=== PATIENT | female | born 1995 | race Caucasian/White ===

== ENCOUNTER → 2017-01-23 15:56 | Emergency (ER) | payer MEDICAID, OTHER ==
[2017-01-23 16:32] LABS: Hematocrit 41 % (35-47); Hemoglobin 13.6 g/dl (12.0-16.0); Mean Corpuscular HGB Conc 33 g/dl (31-36); Mean Corpuscular Hemoglobin 32 pg (27-31); Mean Corpuscular Volume 96 fL (80-97); Mean Platelet Volume 10 um3 (7.4-10.4); Red Blood Count 4.24 10^6/ul (4.0-5.4); Red Cell Distribution Width 12 % (10.5-15); White Blood Count 6.3 10^3/ul (3.5-10.8)
[2017-01-23 16:48] LABS: ALT 10 U/L (7-52); AST 14 U/L (13-39); Albumin 4.2 g/dL (3.2-5.2); Alkaline Phosphatase 44 U/L (34-104); Anion Gap 2 mmol/L (2-11); Blood Urea Nitrogen 12 mg/dL (6-24); CO2 Carbon Dioxide 28 mmol/L (22-32); Calcium 9.2 mg/dL (8.6-10.3); Chloride 100 mmol/L (101-111); EGFR African American 116.4 (>60); EGFR Non-African American 90.5 (>60); Globulin 3.8 g/dL (2-4); Glucose 95 mg/dL (70-100); Potassium 3.9 mmol/L (3.5-5.0); Sodium 130 mmol/L (133-145)
[2017-01-23 16:49] LABS: Benzodiazepine Urine Screen None Detected (None Detect)
[2017-01-23 16:57] LABS: Urine Bacteria Absent (Absent); Urine Bilirubin Negative (Negative); Urine Glucose Negative (Negative); Urine Nitrite Negative (Negative)
[2017-01-23 17:03] LABS: Acetaminophen < 15 mcg/mL; Alcohol < 10 mg/dL (<10); Salicylate < 2.50 mg/dL (<30)
[2017-01-23 17:13] LABS: TSH (Thyroid Stimulating Horm) 1.55 mcIU/mL (0.34-5.60)
--- NOTE | 2017-01-23 18:47 | ED ---
Sharon Bowie Seung-Jae, scribed for Karlos Mehta MD on 01/23/17 at 1735 . Psychiatric Complaint - HPI Summary HPI Summary: Pt is a 22 y/o F BIBA to the ED with c/o SI due to acute depressive episode which was onset a few hours ago. She states that the episode could have been triggered by stress caused by pt's breakup with her boyfriend. Pt denies cutting herself, unusual pain in body. Pt does not smoke, drink, or abuse drugs. She also has FHx of depression in mother. Pt is currently employed in a [employer] in the [employer]. - History Of Current Complaint Chief Complaint: EDMentalHealth Time Seen by Provider: 01/23/17 16:07 Hx Obtained From: Patient Hx Last Menstrual Period: 02/10/14 Onset/Duration: Sudden Onset Timing: Constant Aggravating Factor(s): Recent Stress - breakup with boyfriend Has Suicidal: Reports: Thoughts - Allergies/Home Medications Allergies/Adverse Reactions: Allergies Allergy/AdvReac Type Severity Reaction Status Date / Time Fluoride Allergy Mild Joint Pain Verified 01/23/17 16:06 Lactose Intolerance (GI) Allergy Mild GI Upset Verified 01/23/17 16:06 Omeprazole Allergy Mild GI Upset Verified 01/23/17 16:06 PMH/Surg Hx/FS Hx/Imm Hx Endocrine/Hematology History: Denies: Hx Anticoagulant Therapy, Hx Diabetes, Hx Thyroid Disease Cardiovascular History: Denies: Hx Hypertension, Hx Pacemaker/ICD Respiratory History: Denies: Hx Asthma, Hx Chronic Obstructive Pulmonary Disease (COPD) GI History: Reports: Hx Gastroesophageal Reflux Disease, Hx Irritable Bowel, Other GI Disorders - constipation, takes Metamucil q daily Denies: Hx Cirrhosis, Hx Crohn's Disease, Hx Diverticulosis, Hx Gall Bladder Disease, Hx Gastrointestinal Bleed, Hx Hiatal Hernia, Hx Jaundice, Hx Obstructive Bowel, Hx Ileostomy, Hx Pyloric Stenosis, Hx Ulcer History: Denies: Hx Renal Disease Musculoskeletal History: Reports: Hx Orthopedic Injury - s/p FX (left) distal ulna/distal radius 2008 Sensory History: Denies: Hx Cataracts, Hx Contacts or Glasses, Hx Eye Injury, Hx Eye Prosthesis, Hx Glaucoma, Hx Macular Degeneration, Hx Vision Problem, Hx Deafness , Hx Hearing Aid, Hx Hearing Problem, Other Sensory Impairments Opthamlomology History: Denies: Hx Cataracts, Hx Contacts or Glasses, Hx Eye Injury, Hx Eye Prosthesis, Hx Glaucoma, Hx Macular Degeneration, Hx Vision Problem, Other Sensory Impairments Neurological History: Denies: Hx Dementia, Hx Seizures Psychiatric History: Reports: Hx Anxiety - also social anxiety Denies: Hx Substance Abuse - Cancer History Cancer Type, Location and Year: appendectomy 04/16/12 - Surgical History Surgery Procedure, Year, and Place: TONSILLECTOMY -10/2007. APPENDECTOMY - 04/15. 07/2008 [facility]- closed reduction FX distal ulna/distal radius Hx Anesthesia Reactions: No - Immunization History Date of Tetanus Vaccine: UP TO DATE Date of Influenza Vaccine: NONE Infectious Disease History: No Infectious Disease History: Denies: Hx Hepatitis, Hx Human Immunodeficiency Virus (HIV), Traveled Outside the [place] in Last 30 Days - Family History Known Family History: Positive: Other - IBS, depression in mother - Social History Alcohol Use: None Substance Use Type: Reports: None Smoking Status (MU): Never Smoked Tobacco Have You Smoked in the Last Year: No Review of Systems Positive: Depressed - acute depressive episode , Other - SI, increased stress All Other Systems Reviewed And Are Negative: Yes Physical Exam - Summary Physical Exam Summary: The patient is well-nourished in no acute distress and in no acute pain. The skin is warm and dry and skin color reflects adequate perfusion. HEENT: The head is normocephalic and atraumatic. The pupils are equal and reactive. The conjunctivae are clear and without drainage. Nares are patent and without drainage. Mouth reveals moist mucous membranes and the throat is without erythema and exudate. Neck is supple with full range of motion and non-tender. There are no carotid bruits. There is no neck vein distension. Respiratory: Chest is non-tender. Lungs are clear to auscultation and breath sounds are symmetrical and equal. Cardiovascular: Hear is regular rate and rhythm. There is no murmur or rub auscultated. There is no peripheral edema and pulses are symmetrical and equal. Abdomen: The abdomen is soft and non-tender. There are normal bowel sounds heard in all four quadrants and there is no organomegaly palpated. Musculoskeletal: There is no back pain noted. Extremities are non-tender with full range of motion. There is good capillary refill. There is no peripheral edema or calf tenderness elicited. Neurological: Patient is alert and oriented to person, place and time. The patient has symmetrical motor strength in all four extremities. Cranial nerves are grossly intact. Deep tendon reflexes are symmetrical and equal in all four extremities. Psychiatric: The patient has an appropriate affect and does not exhibit any anxiety or depression. Triage Information Reviewed: Yes Vital Signs On Initial Exam: Initial Vitals Temp Pulse Resp BP Pulse Ox 98 F 80 14 112/70 99 01/23/17 16:28 01/23/17 16:28 01/23/17 16:28 01/23/17 16:28 01/23/17 16:28 Vital Signs Reviewed: Yes - [place] Coma Scale Coma Scale Total: 15 Diagnostics - Vital Signs Vital Signs Temp Pulse Resp BP Pulse Ox 01/23/17 16:28 98 F 80 14 112/70 99 - Laboratory Lab Results: Lab Results 01/23/17 01/23/17 01/23/17 Range/Units 16:11 16:11 16:22 WBC 6.3 (3.5-10.8) 10^3/ul RBC 4.24 (4.0-5.4) 10^6/ul Hgb 13.6 (12.0-16.0) g/dl Hct 41 (35-47) % MCV 96 (80-97) fL MCH 32 H (27-31) pg MCHC 33 (31-36) g/dl RDW 12 (10.5-15) % Plt Count 224 (150-450) 10^3/ul MPV 10 (7.4-10.4) um3 Neut % (Auto) 67.1 (38-83) % Lymph % (Auto) 22.7 L (25-47) % [place] % (Auto) 9.3 H (1-9) % Eos % (Auto) 0.4 (0-6) % Baso % (Auto) 0.5 (0-2) % Absolute Neuts (auto) 4.3 (1.5-7.7) 10^3/ul Absolute Lymphs (auto) 1.4 (1.0-4.8) 10^3/ul Absolute Monos (auto) 0.6 (0-0.8) 10^3/ul Absolute Eos (auto) 0 (0-0.6) 10^3/ul Absolute Basos (auto) 0 (0-0.2) 10^3/ul Absolute Nucleated RBC 0 10^3/ul Nucleated RBC % 0.1 Sodium (133-145) mmol/L Potassium (3.5-5.0) mmol/L Chloride (101-111) mmol/L Carbon Dioxide (22-32) mmol/L Anion Gap (2-11) mmol/L BUN (6-24) mg/dL Creatinine (0.51-0.95) mg/dL Est GFR ( Amer) (>60) Est GFR (Non-Af Amer) (>60) BUN/Creatinine Ratio (8-20) Glucose (70-100) mg/dL Calcium (8.6-10.3) mg/dL Total Bilirubin (0.2-1.0) mg/dL AST (13-39) U/L ALT (7-52) U/L Alkaline Phosphatase (34-104) U/L Total Protein (6.4-8.9) g/dL Albumin (3.2-5.2) g/dL Globulin (2-4) g/dL Albumin/Globulin Ratio (1-3) TSH (0.34-5.60) mcIU/mL Urine Color Yellow Urine Appearance Cloudy Urine pH 7.0 (5-9) Ur Specific [place] 1.023 (1.010-1.030) Urine Protein Negative (Negative) Urine Ketones Negative (Negative) Urine Blood Negative (Negative) Urine Nitrate Negative (Negative) Urine Bilirubin Negative (Negative) Urine Urobilinogen Negative (Negative) Ur Leukocyte Esterase 1+ H (Negative) Urine WBC (Auto) 1+(6-10/hpf) H (Absent) Urine RBC (Auto) Absent (Absent) Ur Squamous Epith Cells Present H (Absent) Urine Bacteria Absent (Absent) Urine Glucose Negative (Negative) Salicylates (<30) mg/dL Urine Opiates Screen None detected (None Detect) Acetaminophen mcg/mL Ur Barbiturates Screen None detected (None Detect) Ur Phencyclidine Scrn None detected (None Detect) Ur Amphetamines Screen None detected (None Detect) U Benzodiazepines Scrn None detected (None Detect) Urine Cocaine Screen None detected (None Detect) U Cannabinoids Screen None detected (None Detect) Serum Alcohol (<10) mg/dL 01/23/17 Range/Units 16:22 WBC (3.5-10.8) 10^3/ul RBC (4.0-5.4) 10^6/ul Hgb (12.0-16.0) g/dl Hct (35-47) % MCV (80-97) fL MCH (27-31) pg MCHC (31-36) g/dl RDW (10.5-15) % Plt Count (150-450) 10^3/ul MPV (7.4-10.4) um3 Neut % (Auto) (38-83) % Lymph % (Auto) (25-47) % [place] % (Auto) (1-9) % Eos % (Auto) (0-6) % Baso % (Auto) (0-2) % Absolute Neuts (auto) (1.5-7.7) 10^3/ul Absolute Lymphs (auto) (1.0-4.8) 10^3/ul Absolute Monos (auto) (0-0.8) 10^3/ul Absolute Eos (auto) (0-0.6) 10^3/ul Absolute Basos (auto) (0-0.2) 10^3/ul Absolute Nucleated RBC 10^3/ul Nucleated RBC % Sodium 130 L (133-145) mmol/L Potassium 3.9 (3.5-5.0) mmol/L Chloride 100 L (101-111) mmol/L Carbon Dioxide 28 (22-32) mmol/L Anion Gap 2 (2-11) mmol/L BUN 12 (6-24) mg/dL Creatinine 0.80 (0.51-0.95) mg/dL Est GFR ( Amer) 116.4 (>60) Est GFR (Non-Af Amer) 90.5 (>60) BUN/Creatinine Ratio 15.0 (8-20) Glucose 95 (70-100) mg/dL Calcium 9.2 (8.6-10.3) mg/dL Total Bilirubin 0.40 (0.2-1.0) mg/dL AST 14 (13-39) U/L ALT 10 (7-52) U/L Alkaline Phosphatase 44 (34-104) U/L Total Protein 8.0 (6.4-8.9) g/dL Albumin 4.2 (3.2-5.2) g/dL Globulin 3.8 (2-4) g/dL Albumin/Globulin Ratio 1.1 (1-3) TSH 1.55 (0.34-5.60) mcIU/mL Urine Color Urine Appearance Urine pH (5-9) Ur Specific [place] (1.010-1.030) Urine Protein (Negative) Urine Ketones (Negative) Urine Blood (Negative) Urine Nitrate (Negative) Urine Bilirubin (Negative) Urine Urobilinogen (Negative) Ur Leukocyte Esterase (Negative) Urine WBC (Auto) (Absent) Urine RBC (Auto) (Absent) Ur Squamous Epith Cells (Absent) Urine Bacteria (Absent) Urine Glucose (Negative) Salicylates < 2.50 (<30) mg/dL Urine Opiates Screen (None Detect) Acetaminophen < 15 mcg/mL Ur Barbiturates Screen (None Detect) Ur Phencyclidine Scrn (None Detect) Ur Amphetamines Screen (None Detect) U Benzodiazepines Scrn (None Detect) Urine Cocaine Screen (None Detect) U Cannabinoids Screen (None Detect) Serum Alcohol < 10 (<10) mg/dL Result Diagrams: 01/23/17 16:22 01/23/17 16:22 Lab Statement: Any lab studies that have been ordered have been reviewed, and results considered in the medical decision making process. Course/Dx - Course Assessment/Plan: This 22 y/o female presents to ED for acute depression and SI without plan. Pt is medically cleared and evaluated by [facility]. Pt declined voluntary admission to [facility]. - Differential Dx/Clinical Impression Differential Diagnosis/HQI/PQRI: Positive: Depression, Suicidal Ideation Provider Diagnosis: Depression - Physician Notifications Patient Is Medically Stable For: Psych Evaluation - 1638 PM Discharge - Discharge Plan Condition: Stable Disposition: HOME Referrals: No Primary Care Phys,NOPCP [Primary Care Provider] - The documentation as recorded by the Sharon loomis Seung-Jae accurately reflects the service I personally performed and the decisions made by , Karlos Mehta MD.
[2017-01-23 19:10] VITALS: BP 128/74
== END | disposition home or self-care (01) ==
LOC: ED 15:56
DX: F32.9 Major depressive disorder, single episode, unspecified (principal)
CPT/HCPCS: 36415; 80053; 80307; 80320; 80329; 81003; 81015; 84443; 85025; 87086; 99284; G0480

== ENCOUNTER 2017-02-13 21:51 | Emergency (ER) | payer OTHER ==
[2017-02-13 21:59] VITALS: BP 129/93
[2017-02-13 23:28] LABS: Hematocrit 40 % (35-47); Hemoglobin 13.5 g/dl (12.0-16.0); Mean Corpuscular HGB Conc 34 g/dl (31-36); Mean Corpuscular Hemoglobin 32 pg (27-31); Mean Corpuscular Volume 95 fL (80-97); Mean Platelet Volume 10 um3 (7.4-10.4); Red Blood Count 4.24 10^6/ul (4.0-5.4); Red Cell Distribution Width 12 % (10.5-15); White Blood Count 9.3 10^3/ul (3.5-10.8)
[2017-02-13 23:31] LABS: ALT 9 U/L (7-52); AST 12 U/L (13-39); Albumin 4.2 g/dL (3.2-5.2); Alkaline Phosphatase 45 U/L (34-104); Anion Gap 7 mmol/L (2-11); BUN/Creatinine Ratio 18.3 (8-20); Blood Urea Nitrogen 15 mg/dL (6-24); CO2 Carbon Dioxide 26 mmol/L (22-32); Calcium 9.5 mg/dL (8.6-10.3); Chloride 101 mmol/L (101-111); EGFR African American 113.2 (>60); Globulin 3.7 g/dL (2-4); Glucose 90 mg/dL (70-100); Potassium 3.8 mmol/L (3.5-5.0); Sodium 134 mmol/L (133-145); Total Protein 7.9 g/dL (6.4-8.9)
[2017-02-14 00:21] LABS: Acetaminophen < 15 mcg/mL; Alcohol < 10 mg/dL (<10); Salicylate < 2.50 mg/dL (<30)
[2017-02-14 00:31] LABS: TSH (Thyroid Stimulating Horm) 5.66 mcIU/mL (0.34-5.60)
[2017-02-14 01:58] LABS: Urine Bacteria Absent (Absent); Urine Bilirubin Negative (Negative); Urine Glucose Negative (Negative); Urine Nitrite Negative (Negative)
[2017-02-14 01:59] LABS: Benzodiazepine Urine Screen None Detected (None Detect)
--- NOTE | 2017-02-14 02:51 | ED ---
I, Oh,Soohguzman, scribed for Karlos Mehta MD on 02/13/17 at 2253 . Psychiatric Complaint - HPI Summary HPI Summary: This 22 y/o female presents to ED for acute on chronic depression since 4 hours ago. Negative SI, EtOH or drug use today, or visual hallucination. Positive sleep disturbance. Good appetite. PMHx includes known depression, endometriosis , anxiety, and fibromyalgia. Positive Hx of inpatient psych treatment at [facility]. FHx is positive for anxiety. - History Of Current Complaint Chief Complaint: EDMentalHealth Time Seen by Provider: 02/13/17 22:35 Hx Obtained From: Patient, Medical Records Hx Last Menstrual Period: 02/10/14 Onset/Duration: Sudden Onset Timing: Constant Character: Depressed Aggravating Factor(s): Nothing Alleviating Factor(s): Nothing Associated Signs And Symptoms: Positive: Sleep Disturbance Related History: Positive For: Prior Psychiatric Issues Has Suicidal: Denies: Thoughts Has Homicidal: Denies: Thoughts - Allergies/Home Medications Allergies/Adverse Reactions: Allergies Allergy/AdvReac Type Severity Reaction Status Date / Time Fluoride Allergy Mild Joint Pain Verified 01/23/17 16:06 Lactose Intolerance (GI) Allergy Mild GI Upset Verified 01/23/17 16:06 Omeprazole Allergy Mild GI Upset Verified 01/23/17 16:06 PMH/Surg Hx/FS Hx/Imm Hx Endocrine/Hematology History: Denies: Hx Anticoagulant Therapy, Hx Diabetes, Hx Thyroid Disease Cardiovascular History: Denies: Hx Hypertension, Hx Pacemaker/ICD Respiratory History: Denies: Hx Asthma, Hx Chronic Obstructive Pulmonary Disease (COPD) GI History: Reports: Hx Gastroesophageal Reflux Disease, Hx Irritable Bowel, Other GI Disorders - constipation, takes Metamucil q daily Denies: Hx Cirrhosis, Hx Crohn's Disease, Hx Diverticulosis, Hx Gall Bladder Disease, Hx Gastrointestinal Bleed, Hx Hiatal Hernia, Hx Jaundice, Hx Obstructive Bowel, Hx Ileostomy, Hx Pyloric Stenosis, Hx Ulcer History: Denies: Hx Renal Disease Musculoskeletal History: Reports: Hx Orthopedic Injury - s/p FX (left) distal ulna/distal radius 2008 Sensory History: Denies: Hx Cataracts, Hx Contacts or Glasses, Hx Eye Injury, Hx Eye Prosthesis, Hx Glaucoma, Hx Macular Degeneration, Hx Vision Problem, Hx Deafness , Hx Hearing Aid, Hx Hearing Problem, Other Sensory Impairments Opthamlomology History: Denies: Hx Cataracts, Hx Contacts or Glasses, Hx Eye Injury, Hx Eye Prosthesis, Hx Glaucoma, Hx Macular Degeneration, Hx Vision Problem, Other Sensory Impairments Neurological History: Denies: Hx Dementia, Hx Seizures Psychiatric History: Reports: Hx Anxiety - also social anxiety, Hx Depression Denies: Hx Eating Disorder, Hx of Violent Episodes Against Others, Hx Substance Abuse - Cancer History Cancer Type, Location and Year: appendectomy 04/16/12 - Surgical History Surgery Procedure, Year, and Place: TONSILLECTOMY -10/2007. APPENDECTOMY - 04/15. 07/2008 [facility]- closed reduction FX distal ulna/distal radius Hx Anesthesia Reactions: No - Immunization History Date of Tetanus Vaccine: UP TO DATE Date of Influenza Vaccine: NONE Infectious Disease History: No Infectious Disease History: Denies: Hx Hepatitis, Hx Human Immunodeficiency Virus (HIV), Traveled Outside the [place] in Last 30 Days - Family History Known Family History: Positive: Other - IBS, depression in mother - Social History Alcohol Use: None Hx Substance Use: No Substance Use Type: Reports: None Hx Tobacco Use: No Smoking Status (MU): Never Smoked Tobacco Have You Smoked in the Last Year: No Review of Systems Negative: Fever Positive: Depressed, Other - sleep disturbance. All Other Systems Reviewed And Are Negative: Yes Physical Exam - Summary Physical Exam Summary: The patient is well-nourished in no acute distress and in no acute pain. The skin is warm and dry and skin color reflects adequate perfusion. No laceration noted at bilat upper arms. HEENT: The head is normocephalic and atraumatic. The pupils are equal and reactive. The conjunctivae are clear and without drainage. Nares are patent and without drainage. Mouth reveals moist mucous membranes and the throat is without erythema and exudate. The external ears are intact. The ear canals are patent and without drainage. The tympanic membranes are intact. Neck is supple with full range of motion and non-tender. There are no carotid bruits. There is no neck vein distension. Respiratory: Chest is non-tender. Lungs are clear to auscultation and breath sounds are symmetrical and equal. Cardiovascular: Hear is regular rate and rhythm. There is no murmur or rub auscultated. There is no peripheral edema and pulses are symmetrical and equal. Abdomen: The abdomen is soft and non-tender. There are normal bowel sounds heard in all four quadrants and there is no organomegaly palpated. Musculoskeletal: There is no back pain noted. Extremities are non-tender with full range of motion. There is good capillary refill. There is no peripheral edema or calf tenderness elicited. Neurological: Patient is alert and oriented to person, place and time. The patient has symmetrical motor strength in all four extremities. Cranial nerves are grossly intact. Deep tendon reflexes are symmetrical and equal in all four extremities. Psychiatric: The patient is noted depressed. Triage Information Reviewed: Yes Vital Signs On Initial Exam: Initial Vitals Temp Pulse Resp BP Pulse Ox 98.7 F 94 18 129/93 98 02/13/17 21:54 02/13/17 21:54 02/13/17 21:54 02/13/17 21:54 02/13/17 21:54 Vital Signs Reviewed: Yes - [place] Coma Scale Coma Scale Total: 15 Diagnostics - Vital Signs Vital Signs Temp Pulse Resp BP Pulse Ox 02/13/17 22:24 98.7 F 94 18 129/93 100 02/13/17 21:54 98.7 F 94 18 129/93 98 - Laboratory Lab Results: Lab Results 02/13/17 02/13/17 02/14/17 Range/Units 23:04 23:04 01:28 WBC 9.3 (3.5-10.8) 10^3/ul RBC 4.24 (4.0-5.4) 10^6/ul Hgb 13.5 (12.0-16.0) g/dl Hct 40 (35-47) % MCV 95 (80-97) fL MCH 32 H (27-31) pg MCHC 34 (31-36) g/dl RDW 12 (10.5-15) % Plt Count 181 (150-450) 10^3/ul MPV 10 (7.4-10.4) um3 Neut % (Auto) 65.3 (38-83) % Lymph % (Auto) 26.1 (25-47) % [place] % (Auto) 7.8 (1-9) % Eos % (Auto) 0.5 (0-6) % Baso % (Auto) 0.3 (0-2) % Absolute Neuts (auto) 6.0 (1.5-7.7) 10^3/ul Absolute Lymphs (auto) 2.4 (1.0-4.8) 10^3/ul Absolute Monos (auto) 0.7 (0-0.8) 10^3/ul Absolute Eos (auto) 0 (0-0.6) 10^3/ul Absolute Basos (auto) 0 (0-0.2) 10^3/ul Absolute Nucleated RBC 0.01 10^3/ul Nucleated RBC % 0.1 Sodium 134 (133-145) mmol/L Potassium 3.8 (3.5-5.0) mmol/L Chloride 101 (101-111) mmol/L Carbon Dioxide 26 (22-32) mmol/L Anion Gap 7 (2-11) mmol/L BUN 15 (6-24) mg/dL Creatinine 0.82 (0.51-0.95) mg/dL Est GFR ( Amer) 113.2 (>60) Est GFR (Non-Af Amer) 88.0 (>60) BUN/Creatinine Ratio 18.3 (8-20) Glucose 90 (70-100) mg/dL Calcium 9.5 (8.6-10.3) mg/dL Total Bilirubin 0.40 (0.2-1.0) mg/dL AST 12 L (13-39) U/L ALT 9 (7-52) U/L Alkaline Phosphatase 45 (34-104) U/L Total Protein 7.9 (6.4-8.9) g/dL Albumin 4.2 (3.2-5.2) g/dL Globulin 3.7 (2-4) g/dL Albumin/Globulin Ratio 1.1 (1-3) TSH 5.66 H (0.34-5.60) mcIU/mL Beta HCG, Quant Pending Urine Color Yellow Urine Appearance Clear Urine pH 6.0 (5-9) Ur Specific [place] 1.024 (1.010-1.030) Urine Protein Negative (Negative) Urine Ketones Trace H (Negative) Urine Blood Negative (Negative) Urine Nitrate Negative (Negative) Urine Bilirubin Negative (Negative) Urine Urobilinogen Negative (Negative) Ur Leukocyte Esterase Trace H (Negative) Urine WBC (Auto) Trace(0-5/hpf) (Absent) Urine RBC (Auto) Trace(0-2/hpf) (Absent) Ur Squamous Epith Cells Present H (Absent) Urine Bacteria Absent (Absent) Urine Glucose Negative (Negative) Salicylates < 2.50 (<30) mg/dL Urine Opiates Screen (None Detect) Acetaminophen < 15 mcg/mL Ur Barbiturates Screen (None Detect) Ur Phencyclidine Scrn (None Detect) Ur Amphetamines Screen (None Detect) U Benzodiazepines Scrn (None Detect) Urine Cocaine Screen (None Detect) U Cannabinoids Screen (None Detect) Serum Alcohol < 10 (<10) mg/dL 02/14/17 Range/Units 01:28 WBC (3.5-10.8) 10^3/ul RBC (4.0-5.4) 10^6/ul Hgb (12.0-16.0) g/dl Hct (35-47) % MCV (80-97) fL MCH (27-31) pg MCHC (31-36) g/dl RDW (10.5-15) % Plt Count (150-450) 10^3/ul MPV (7.4-10.4) um3 Neut % (Auto) (38-83) % Lymph % (Auto) (25-47) % [place] % (Auto) (1-9) % Eos % (Auto) (0-6) % Baso % (Auto) (0-2) % Absolute Neuts (auto) (1.5-7.7) 10^3/ul Absolute Lymphs (auto) (1.0-4.8) 10^3/ul Absolute Monos (auto) (0-0.8) 10^3/ul Absolute Eos (auto) (0-0.6) 10^3/ul Absolute Basos (auto) (0-0.2) 10^3/ul Absolute Nucleated RBC 10^3/ul Nucleated RBC % Sodium (133-145) mmol/L Potassium (3.5-5.0) mmol/L Chloride (101-111) mmol/L Carbon Dioxide (22-32) mmol/L Anion Gap (2-11) mmol/L BUN (6-24) mg/dL Creatinine (0.51-0.95) mg/dL Est GFR ( Amer) (>60) Est GFR (Non-Af Amer) (>60) BUN/Creatinine Ratio (8-20) Glucose (70-100) mg/dL Calcium (8.6-10.3) mg/dL Total Bilirubin (0.2-1.0) mg/dL AST (13-39) U/L ALT (7-52) U/L Alkaline Phosphatase (34-104) U/L Total Protein (6.4-8.9) g/dL Albumin (3.2-5.2) g/dL Globulin (2-4) g/dL Albumin/Globulin Ratio (1-3) TSH (0.34-5.60) mcIU/mL Beta HCG, Quant Urine Color Urine Appearance Urine pH (5-9) Ur Specific [place] (1.010-1.030) Urine Protein (Negative) Urine Ketones (Negative) Urine Blood (Negative) Urine Nitrate (Negative) Urine Bilirubin (Negative) Urine Urobilinogen (Negative) Ur Leukocyte Esterase (Negative) Urine WBC (Auto) (Absent) Urine RBC (Auto) (Absent) Ur Squamous Epith Cells (Absent) Urine Bacteria (Absent) Urine Glucose (Negative) Salicylates (<30) mg/dL Urine Opiates Screen None detected (None Detect) Acetaminophen mcg/mL Ur Barbiturates Screen None detected (None Detect) Ur Phencyclidine Scrn None detected (None Detect) Ur Amphetamines Screen None detected (None Detect) U Benzodiazepines Scrn None detected (None Detect) Urine Cocaine Screen None detected (None Detect) U Cannabinoids Screen None detected (None Detect) Serum Alcohol (<10) mg/dL Result Diagrams: 02/13/17 23:04 02/13/17 23:04 Lab Statement: Any lab studies that have been ordered have been reviewed, and results considered in the medical decision making process. Course/Dx - Course Assessment/Plan: This 22 y/o female presents to ED for acute on chronic known depression. Pt denies any SI or HI. Positive sleep disturbance, but pt denies any appetite change, auditory hallucination, or paranoia. Pt was medically cleared at 2340 PM and has been cleared for discharge after [facility]. Pt is stable throughout ED course, and stable for discharge at this moment. - Differential Dx/Clinical Impression Differential Diagnosis/HQI/PQRI: Positive: Anxiety, Depression Provider Diagnosis: Depression - Physician Notifications Patient Is Medically Stable For: Psych Evaluation - Medically cleared at 2340 PM Discharge - Discharge Plan Condition: Stable Disposition: HOME Referrals: Adela Sanchez MD [Primary Care Provider] - The documentation as recorded by the scribRoman pickering Soohyun accurately reflects the service I personally performed and the decisions made by me, Karlos Mehta MD.
== END 2017-02-14 02:25 | disposition home or self-care (01) ==
LOC: ED 21:51
DX: F32.9 Major depressive disorder, single episode, unspecified (principal); F41.9 Anxiety disorder, unspecified; Z04.8 Encounter for examination and observation for other specified reasons
CPT/HCPCS: 36415; 80053; 80307; 80320; 80329; 81003; 81015; 84443; 84702; 85025; 87086; 99284; G0480

== ENCOUNTER 2017-03-05 15:13 | Emergency (ER) | payer OTHER ==
[2017-03-05] MEDS ORDERED: diPHENhydraMINE IV* 50 MG/ML 1 ml VIAL (BENADRYL) IV ONE (16:00)
[2017-03-05] MEDS ORDERED: Ketorolac INJ* 30 MG/ML 1 ML VIAL IV ONE (16:00)
[2017-03-05] MEDS ORDERED: NS 0.9% 1000 ML* 1,000 ML IV ONE (17:16)
[2017-03-05 17:47] VITALS: BP 118/78
--- NOTE | 2017-03-11 14:00 | UC ---
Ambar Bowie SooYoung, scribed for BrieCarmen Franco DO on 03/05/17 at 1554 . Headache HPI - HPI Summary HPI Summary: A 22 y/o F presents to [facility] with diffuse ALBA onset yesterday around 1100. Pt states she doesn't usually get ALBA. It resolved briefly, but she woke up with it this AM. Rated LABA as 4/10 at bedside, described as throbbing in the ears. Associated sx: photophobia, sinus congestion on R-side and cold-like sx ongoing for past 2 weeks; cough and sore throat since resolved. Denies fever, chills, CP , SOB, n/v/d, abd pain, dysuria. Aggravating factors: bright lights, loud noises. 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 - History Of Current Complaint Chief Complaint: UCHeadache Stated Complaint: HEADACHE Time Seen by Provider: 03/05/17 15:43 Hx Obtained From: Patient Hx Last Menstrual Period: 03/04/17 Onset/Duration: Gradual Onset, Lasting Days, Still Present Onset Of Symptoms: Gradual, Still Present Initially Headache Was: Moderate Currently Pain Is: Current Pain Scale(0-10)= - 4, Moderate Pain Intensity: 6 - generally Pain Scale Used: 0-10 Numeric Timing: Constant Character: Throbbing Location of Headache: Diffuse Aggravating Factor: Bright Lights, Other - loud [place] Associated Signs And Symptoms: Positive: Sinus Pressure - congestion, Other ( Noted In Comments) - pos: photophobia, cough, sore throat; neg: chills, CP, SOB , diarrhea, abd pain, dysuria. Negative: Nausea, Vomiting, Fever - Allergies/Home Medications Allergies/Adverse Reactions: Allergies Allergy/AdvReac Type Severity Reaction Status Date / Time Fluoride Allergy Mild Joint Pain Verified 03/05/17 15:26 Lactose Intolerance (GI) Allergy Mild GI Upset Verified 03/05/17 15:26 Omeprazole Allergy Mild GI Upset Verified 03/05/17 15:26 Home Medications: Home Medications Levonorgestrel & Eth Estradiol [Aubra] 1 tab PO 03/05/17 [History] PMH/Surg Hx/FS Hx/Imm Hx Previously Healthy: No GI/ History: Gastroesophageal Reflux, Other Other GI/ History: IBS Psychological History: Anxiety, Depression Other History Of: Negative For: Anticoagulant Therapy - Surgical History Surgical History: Yes Surgery Procedure, Year, and Place: TONSILLECTOMY -10/2007. APPENDECTOMY - 04/15. 07/2008 [facility]- closed reduction FX distal ulna/distal radius - Family History Known Family History: Positive: Hypertension, Diabetes - maternal, Other - IBS, depression in mother - Social History Occupation: Unemployed, Student Lives: With Family - friends Alcohol Use: None Substance Use Type: None Smoking Status (MU): Never Smoked Tobacco Have You Smoked in the Last Year: No - Immunization History Vaccination Up to Date: Yes Review of Systems Constitutional: Negative Skin: Negative Eyes: Photophobia ENT: Sore Throat - resolved, Sinus Congestion Respiratory: Cough - resolved Cardiovascular: Negative Gastrointestinal: Negative Genitourinary: Negative Motor: Negative Neurovascular: Negative Musculoskeletal: Negative Neurological: Headache Psychological: Negative All Other Systems Reviewed And Are Negative: Yes Physical Exam Triage Information Reviewed: Yes Appearance: Well-Appearing, No Pain Distress, Well-Nourished Vital Signs: Initial Vital Signs Temp 98.8 F 03/05/17 15:23 Pulse 91 03/05/17 15:23 Resp 18 03/05/17 15:23 BP 117/72 03/05/17 15:23 Pulse Ox 100 03/05/17 15:23 Vital Signs Reviewed: Yes Eyes: Positive: Conjunctiva Clear. Negative: Discharge ENT: Positive: Hearing grossly normal, Other: - impacted cerumen bilaterally. Negative: Muffled/hoarse voice Neck: Positive: Supple, Nontender Respiratory: Positive: Lungs clear, Normal breath sounds, No respiratory distress, No accessory muscle use Cardiovascular: Positive: RRR, No Murmur Musculoskeletal Exam: Normal Neurological: Positive: Alert, Muscle Tone Normal, Other: - Aox3, cn2-12 intact , stregnth sensationand reflexes intact bl, no cerebellar sign Psychological Exam: Normal Psychological: Positive: Age Appropriate Behavior Skin Exam: Normal, Other - warm, dry, nml color Re-Evaluation - Re-Evaluation 1 Re-Evaluation Time: 17:10 Change: Improved Comment: Pt is feeling sleepy, but improved. No ALBA, no light sensitivity. Headache Course/Dx - Course Course Of Treatment: Medications reviewed this visit. Normal BP reading and no follow-up instructions required. Pt given Benadryl, Toradol, fluids at [facility]. re -eval s/p migraine cocktail:all alba sx resolved. pt sleepy and wants to go home and sleep - Differential Dx/Diagnosis Differential Diagnosis/HQI/PQRI: Migraine, Sinus Headache, Tension Headache, Viral Syndrome Provider Diagnoses: headache Discharge - Discharge Plan Condition: Stable Disposition: HOME Patient Education Materials: Acute Headache (ED) Forms: *Work Release Referrals: Adela Sanchez MD [Primary Care Provider] - (Follow up within 1 week) Additional Instructions: Return to Urgent Care if you have any new or worsening symptoms. The documentation as recorded by the Ambar loomis SooYoung accurately reflects the service I personally performed and the decisions made by , Carmen Baird DO.
== END 2017-03-05 17:48 | disposition home or self-care (01) ==
LOC: UCEAST 15:13
DX: R51 Headache (principal); K21.9 Gastro-esophageal reflux disease without esophagitis; K58.9 Irritable bowel syndrome, unspecified; F41.9 Anxiety disorder, unspecified; F32.9 Major depressive disorder, single episode, unspecified
CPT/HCPCS: 96361; 96374; 96375; 99211; G0463; J1200; J1885

== ENCOUNTER 2018-09-22 15:22 | Emergency (ER) | payer OTHER ==
[2018-09-22 16:14] VITALS: BP 117/75
--- NOTE | 2018-09-22 17:03 | UC ---
Skin Complaint HPI - HPI Summary HPI Summary: 23 y/o female presents to the urgent care c/o RT thumb nail pain and drainage s/ p scratching her thumb w/ something on last 09/20/2018. Pt reports she noticed the open area is oozing a yellowish discharge, red and painful since yesterday. She has applied Neosporyn topical cream, but it is concerned it is getting infected since this morning she noticed more drainage. Pain at touch is 4/10. She can move thumb w/o any problem. Pt denies numbness or tingling sensation over the thumb, fever, SOB, chest pain, SOB, chest pain, abdominal pain, N/V/D. - History of Current Complaint Chief Complaint: UCSkin Time Seen by Provider: 09/22/18 16:48 Stated Complaint: INFECTED THUMBNAIL Hx Obtained From: Patient Hx Last Menstrual Period: currently ?: No Onset/Duration: Gradual Onset, Lasting Days - 2 days, Still Present, Worse Since - today Skin Exposure Onset/Duration: Days Ago - 2 days Timing: Constant Onset Severity: Mild Current Severity: Moderate Pain Intensity: 3 Pain Scale Used: 0-10 Numeric Location: Discrete - Rt thumb w/ infected abrasion Character: Redness, Raised, Painful Aggravating Factor(s): OTC Meds, Touch Alleviating Factor(s): OTC Creams/Salves Associated Signs & Symptoms: Positive: Rash - infected abrasion on Rt thumb, Drainage - yellowish, Tenderness. Negative: Fever, Chills Related History: Other: - infected abrasion on the Rt thumb - Allergy/Home Medications Allergies/Adverse Reactions: Allergies Allergy/AdvReac Type Severity Reaction Status Date / Time omeprazole AdvReac Mild GI Upset Verified 09/22/18 16:15 lactose AdvReac GI Upset Verified 09/22/18 16:15 fluoride AdvReac Mild Joint Pain Uncoded 09/22/18 16:15 Home Medications: Home Medications Bismuth Subsalicylate [Pepto-Bismol] 525 mg PO DAILY PRN 09/22/18 [History Confirmed 09/22/18] Etonogestrel [Nexplanon] 68 mg IMPLANT 09/22/18 [History] Melatonin 3 mg PO BEDTIME PRN 09/22/18 [History Confirmed 09/22/18] PMH/Surg Hx/FS Hx/Imm Hx Previously Healthy: Yes - Pt denies PMHX Other History Of: Negative For: Anticoagulant Therapy - Surgical History Surgical History: Yes Surgery Procedure, Year, and Place: TONSILLECTOMY -10/2007. APPENDECTOMY - 04/15. 07/2008 [facility]- closed reduction FX distal ulna/distal radius - Family History Known Family History: Positive: Hypertension, Diabetes - maternal, Other - IBS, depression in mother - Social History Occupation: Employed Full-time Lives: With Family Alcohol Use: None Substance Use Type: None Smoking Status (MU): Never Smoked Tobacco Have You Smoked in the Last Year: No - Immunization History Vaccination Up to Date: Yes Review of Systems All Other Systems Reviewed And Are Negative: Yes Constitutional: Positive: Negative Skin: Positive: Rash - infected brasion on the Rt thumb oozing a yellowish drainage Eyes: Positive: Negative ENT: Positive: Negative Respiratory: Positive: Negative Cardiovascular: Positive: Negative Gastrointestinal: Positive: Negative Genitourinary: Positive: Negative Motor: Positive: Negative Neurovascular: Positive: Negative Musculoskeletal: Positive: Negative Neurological: Positive: Negative Psychological: Positive: Negative Is Patient Immunocompromised?: No Physical Exam - Summary Physical Exam Summary: Vital Signs Reviewed: Yes General: well developed, well nourished obese female sitting in the examining table w/o any apparent distress Eye Exam: Normal Eyes: Positive: Conjunctiva Clear - PERRLA, EOMI, fundi grossly normal ENT: Positive: Normal ENT inspection, Hearing grossly normal, Pharynx normal, TMs normal Neck: Positive: Supple, Nontender, No Lymphadenopathy Respiratory: Positive: Chest non-tender, Lungs clear, Normal breath sounds, No respiratory distress Cardiovascular: Positive: RRR, No Murmur, Pulses Normal, Brisk Capillary Refill Abdomen Description: Positive: Nontender, No Organomegaly, Soft. Negative: CVA Tenderness (R), CVA Tenderness (L) Bowel Sounds: Positive: Present Musculoskeletal: Positive: Strength Intact, ROM Intact, No Edema Neurological: Positive: Alert, Muscle Tone Normal Psychological Exam: Normal Skin: Positive: RT first phalanx with medial aspect of the nail w/ discrete w/ a discrete erythematous pustule draining yellowish discharge. mild tender to palpation. FROM of phalanx, sensation is intact, capillary refill WNL, reflexes WNL Triage Information Reviewed: Yes Vital Signs: Initial Vital Signs Temp 98.6 F 03/16/19 16:09 Pulse 95 09/22/18 16:09 Resp 16 09/22/18 16:09 BP 117/75 09/22/18 16:09 Pulse Ox 100 09/22/18 16:09 Course/Dx - Course Course Of Treatment: 23 y/o female presents to the urgent care c/o RT thumb nail pain and drainage s/ p scratching her thumb w/ something on last 09/20/2018. Pt reports she noticed the open area is oozing a yellowish discharge, red and painful since yesterday. She has applied Neosporyn topical cream, but it is concerned it is getting infected since this morning she noticed more drainage. Pain at touch is 4/10. She can move thumb w/o any problem. Pt denies numbness or tingling sensation over the thumb, fever, SOB, chest pain, SOB, chest pain, abdominal pain, N/V/D. Hx obtained. Pt w/ Rt thumb mild paronychia on examination. At this moment there is not need for drainage. No Hx of MRSA. Pt Rx Keflex PO and Bacitracin oint.. Advised to take Motrin for pain and swelling. D/C instructions explained. Pt advised if not improvement of symptoms to return to the urgent care or PCP for further management. Father and PT understood and agreed w/ plan of care - Differential Diagnoses - Skin Complaint Differential Diagnoses: Abscess, Cellulitis, MRSA, Tinea, Other - paronychia - Diagnoses Provider Diagnosis: Paronychia of right thumb Discharge - Sign-Out/Discharge Documenting (check all that apply): Patient Departure - d/c home All imaging exams completed and their final reports reviewed: No Studies - Discharge Plan Condition: Stable Disposition: HOME Prescriptions: Bacitracin OINTMENT* 1 applic TOPICAL BID #1 tube Cephalexin CAP* [Keflex CAP*] 500 mg PO TID #21 cap Patient Education Materials: Paronychia (ED) Referrals: Vitor Hammond MD [Primary Care Provider] - 3 Days Additional Instructions: 1-Please take Keflex full course of Antibiotic to avoid resistance. 2- Please apply Bacitracin oint as directed. If redness and swelling doubles in size after 48 hrs of taking antibiotic and fever develops please return to the urgent care or f/u w/ your PCP for further management 3-Avoid ftoo much flexion of your thumb and keep wound clean and dry. - Billing Disposition and Condition Condition: STABLE Disposition: Home
== END 2018-09-22 17:11 | disposition home or self-care (01) ==
LOC: UCEAST 15:22
DX: L03.011 Cellulitis of right finger (principal); Z88.8 Allergy status to other drugs, medicaments and biological substances; Z91.011 Allergy to milk products
CPT/HCPCS: 99212; G0463

== ENCOUNTER 2018-12-26 12:32 | Emergency (ER) | payer OTHER ==
--- OUTSIDE RECORDS SUMMARY | 2018-12-26 12:55 | XMS REPORT | Continuity of Care Document ---
:1995 Author Organization [facility] Address [address] [place], [place] [id number] Phone Care Team Providers Name Role Phone Gwendolyn Garrison Unavailable Unavailable Allergies, Adverse Reactions, Alerts Substance Reaction Status FLUORIDE (mild) Active Medications Medication Instructions Dosage Effective Dates Status Comments (start - stop) Nexplanon 68 mg Insert in clinic - Active subdermal implant MELATONIN (unknown Not Available - Active strength) B12 5,000 mcg-100 - Active mcg sublingual lozenge Celexa 20 mg tablet - Active Problems Condition Effective Dates (start - Clinical Status Comments stop) Encounter for oth general cnsl and - advice on contraception Pelvic and perineal pain Enctr srvlnc implantable subdermal contraceptive Enctr for init prescription of implntbl subdermal contracep Encounter for oth general cnsl and advice on contraception Human immunodeficiency virus [HIV] - counseling 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 [facility] [address] , [facility], [facility] [address], [address] tel:[phone] [facility], [address] [place], [id number], [place] tel:[phone] [facility] Encounter for [facility]ankar [facility] [place] ot general cnsl [address]. [address] Provider: Javy and advice on [address], Kathleen Finger contraceptionPel [place], [place], Shankar J, [facility], [address] [place] [address], [place]. [address] painEnctr srvlnc tel:[phone], [address], [place], implantable [address] [place], [place], [place], [address]. [id number], contraceptive tel:[phone] tel:[phone] [facility] Enctr for init Hardik Johnston. [facility] [place] prescription of [address] Provider: Javy implntbl [address], [place], [place], [address], [place], [address] [facility], [address] contracep [place]. [address], [place], [place], [place], [address]. [id number], [place] tel:[phone] [facility] Encounter for 0 Raphaelidis [facility] [place] ot general cnsl [address] Sarah. [address] Provider: Javy and advice on [address], Sarah Finger contraception [place], [place], Raphaelidi [facility], [address] [id number]. s, [address] tel:[phone], [address], [place], [address] [place], [place], [address]. [id number], tel:[phone] tel:[phone] [facility] Human Hardik Johnston. 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 [place], [address] (general) [address], [address], [place], (routine) w/o [place], [place], [place], [address]. [id number], findingsEncounte tel:[phone] [place] r for oth [id number] tel:[phone] screening for [id number] malignant neoplasm of breastEncounter for surveillance of contraceptive pills Family History Family Member Diagnosis Age At Onset 1st degree relative No hx of cancer of breast, colon, endometrium or ovary 1st degree relative No hx of osteoporosis 1st degree relative No hx of coronary heart disease (female <65, male <55) 1st degree relative No hx of venous thromboembolism Immunizations Vaccine Date Status Comments No information Payers Payer name Insurance type Covered libertarian ID Authorization(s) Jaswinder MARCUS [facility] CI [id number] Social History Type Description Quantity Date Captured Comments Alcohol Use Details Unknown Caffeine Use Details Unknown Tobacco Use Status Unknown Smoking Status Never smoker Sex Female Vital Signs Date / Height Weight BMI Pulse Blood Temperature Respiratory Body Head BMI Pulse Inhaled Time: Rate Pressure Rate Surface Circumference percentile Ox Ox Area No information Chief Complaint And Reason For Visit No information Reason For Referral Reason For Referral No information Plan Of Treatment Date Type Action Status No information History Of Present Illness Encounter Date Complaint History Of Present Illness No information Functional Status Date Functional Assessment No information Medications Administered Medication Instructions Dosage Effective Dates (start - stop) Status Comments No information Instructions Date Instruction Additional Information No information Assessments Type Assessment Date No information Goals Health Concern Goal Type Priority Status Date No information Medical Equipment Description Device Glynn Device Identifier Effective Dates (start - stop ) Status No information Mental Status Date Cognitive Assessment No information Health Concerns Observation Date No information Concern Status Date No information
--- OUTSIDE RECORDS SUMMARY | 2018-12-26 12:55 | XMS REPORT | Continuity of Care Document ---
:1995 External Reference #:[id number] Author Name Kathleen Francisco Care Team Providers Name Role Phone Vitor Hammond MD Primary Care Physician Unavailable Payers Date Identification Numbers Payment Provider Subscriber Policy Number: [id number] Jaswinder Zarate PayID: [id number] [address] [place] [address] Problems Active Problems Provider Date Hypermobility syndrome Tevin Navas M.D. Onset: 05/22/2014 Myalgia & Myositis Unspecified Tevin Navas M.D. Onset: 05/22/2014 Dyssomnia Sneha Jennings MD Onset: 08/06/2014 Insomnia Sneha Jennings MD Onset: 08/06/2014 Anxiety disorder Leigh Whitehead M.D. Onset: 10/16/2014 Irritable bowel syndrome Onset: Gastroesophageal reflux disease Heaven Kwan DNP, RN, SCREEDMAN/LABORER- Onset: 05/12 Note: Nocturnal Dysmenorrhea Onset: Note: will see post form remover possible laproscopy Inactive Problems Gastritis Onset: Inactive: 03/12/2015 Family History Date Family Member(s) Observation Comments Onset: (2014) Father No Current Problems Hypermobility syndrome (age 41 Years) Onset: (2014) Mother Depression (age 40 Years) Mother narcolepsy Siblings 1 Siblings adoptive brother; alive biological brother who was and well adopted. Social History Type Date Description Comments Sex Unknown Marital Status Single Lives With Mother And Father Occupation Unemployed was attending [employer] but stopped going 2013 due to almost passing out while standing on a bus. has interests in art and ceramics. ETOH Use Never used alcohol Tobacco Use Start: Unknown Patient has never smoked Recreational Drug Use Denies Drug Use Smoking Status Reviewed: 11/29/18 Patient has never smoked Exercise Type/Frequency Exercises regularly Allergies, Adverse Reactions, Alerts Active Allergies Reaction Severity Comments Date Flouride Joint pain 05/22/2014 Lactose (Intolerance) 05/22/2014 Medications Active Medications SIG Qnty Indications Ordering Date Provider Neoprene Patella Knee use daily as needed 2units Isaak Cuenca, 2017 Support/Medium for knee M.D. Misc stabilization Knee Brace bilateral knee brace 1units Isaak Cuenca, 08/22/2017 Misc daily for M.D. stabilization dx m35.7 Cyanocobalamin inject 1 milliliters 75ml D51.9 Isaak Cuenca, 07/24/2017 sc every 2 weeks M.D. 1000mcg/ML Solution BD 1ML for use with b12 42units Isaak Cuenca, 07/24/2017 Syringe/Safetyglide injections M.D. Shielding Needle 25G X 5/8" 25G X 5/8" 1 ML Misc B6 Natural take one 60tabs Isaak Cuenca, 07/24/2017 100mg capsule/tablet daily M.D. Tablets by mouth Citalopram 1 by mouth every day Unknown Hydrobromide 40mg Tablets Benadryl Allergy prn Unknown 25mg Capsules Melatonin ER take one Unknown 3mg tablet/capsule by Tablets ER mouth at bedtime. for insomnia Pepto-Bismol 524 mg every 30 to Unknown 262mg 60 minutes as needed Chewtabs up to 8 doses/24 hours History Medications Etodolac take one capsule 30caps M35.7 Isaak Cuenca, 08/16/2018 - 200mg by mouth daily as M.D. 11/27/2018 Capsules needed Custom Molded Foot custom made foot 1units Isaak Cuenca, 08/22/2017 - Orthotic orthotics M.D. 10/23/2017 bilaterally for dx m35.7 Meloxicam take one tab twice 45tabs M35.7 Isaak Cuenca, 06/21/2017 - 7.5mg daily as needed M.D. 10/23/2017 Tablets for pain, avoid other nsaids Rozerem 1 po qh evening 30tabs Heaven Kwan, 03/31/2015 - 8mg Tablets MDD 1 DNP, RN, SCREEDMAN/LABORER- 06/21/2017 Amitriptyline HCL 1 by mouth every 30tabs Gio Hernández, 01/21/2015 - day MD 05/28/2015 10mg Tablets Citalopram Daily Unknown 11/18/2014 - Hydrobromide 05/28/2015 10mg Tablets Omeprazole 1 by mouth every 60caps 787.1 Leigh Whitehead, 10/16/2014 - 40mg day M.D. 05/28/2015 Capsules Macrodantin 1 tab po 3 times a QS Leigh Whitehead, 10/16/2014 - 50mg day X 5 days M.D. 11/17/2014 Capsules Melatonin ER 1 tab by mouth 30tabs G47.00 Sneha Jennings, 09/17/2014 - 3mg every day every MD 05/28/2015 Tablets ER night Omeprazole 1 by mouth every 90caps 535.00 Leigh Whitehead, 09/03/2014 - 20mg day 1/2 hr before M.D. 10/16/2014 Capsules breakfast Gabapentin start 1 daily at 100caps 729.1 Tevin Navas, 07/04/2014 - 100mg night 2-3 days; M.D. 09/03/2014 Capsules then increase to 1 by mouth bid; after 5 days increase to 1 by mouth three times a day. Cymbalta 1 by mouth every 30caps 729.1 Tevin Navas, 05/22/2014 - 30mg Caps day M.D. 07/04/2014 Part Ortho-Cyclen (28) 1 by mouth every 28tabs Unknown - day 06/21/2017 0.25-35mg-mcg Tablets Nexium 24HR 1 by mouth every 60caps Unknown - 20mg other day 07/04/2014 Capsules Melatonin at bedtime Unknown - 3mg Tablets 07/16/2014 ER Hydromorphone HCL 1 tab every 4 to 6 Unknown - 2mg hours prn pain 05/28/2015 (only has 5 tabs) Last took 2 pm 11/16/14 Pantoprazole Sodium 1 by mouth every Unknown - day 06/21/2017 20mg Tablets Levonorgestrel/Ethin 1 by mouth every Unknown - yl Estradiol day 08/16/2018 0.1-20mg-mcg Tablets Melatonin ER 1 tablet at night Unknown - 3mg 1 to 2 hours 06/21/2017 Tablets ER before bedtime Immunizations CPT Code Status Date Vaccine Lot # [id number] Given 11/21/2012 Gardasil (HPV) 70012 Given 07/23/2012 Gardasil (HPV) 20289 Given 05/23/2012 Meningococcal Immunization 05041 Given 05/23/2012 Gardasil (HPV) 53596 Given 03/20/2009 Hepatitis A Vaccine Pediatric/Adolescent Dosage 2 Dose Schedule 12332 Given 03/19/2008 Meningococcal Immunization 84323 Given 03/19/2008 Hepatitis A Vaccine Pediatric/Adolescent Dosage 2 Dose Schedule 00892 Given 02/06/2007 Varicella (Chicken Pox) Immunization 60468 Given 02/06/2007 Tdap - Tetanus/Diptheria/Acellular Pertussis 21867 Given 10/03/2000 IPV/Poliomyelitis Immunization 59242 Given 10/03/2000 Measles Mumps And Rubella MMR 88235 Given 10/03/2000 DTaP Vaccine Younger Than 7 90828 Given 07/25/1997 DTaP Vaccine Younger Than 7 74435 Given 07/25/1997 Varicella (Chicken Pox) Immunization 03318 Given 01/15/1997 Measles Mumps And Rubella MMR 91019 Given 1996 Hep B Pediatric/Adolescent 32025 Given 1996 IPV/Poliomyelitis Immunization 47744 Given 1996 DTaP Vaccine Younger Than 7 21845 Given 1996 IPV/Poliomyelitis Immunization 92712 Given 1996 DTaP Vaccine Younger Than 7 25301 Given 1996 IPV/Poliomyelitis Immunization 69796 Given 1996 DTaP Vaccine Younger Than 7 41966 Given 1996 Hep B Pediatric/Adolescent 40409 Given 1996 Hep B Pediatric/Adolescent Vital Signs Date Vital Result Comment 11/29/2018 12:38pm Height 67 inches 5'7" Weight 183.00 lb Heart Rate 100 /min BP Systolic Sitting 144 mmHg BP Diastolic Sitting 87 mmHg BMI (Body Mass Index) 28.7 kg/m2 08/16/2018 1:19pm Height 67 inches 5'7" Weight 177.38 lb Heart Rate 72 /min BP Systolic Sitting 118 mmHg BP Diastolic Sitting 78 mmHg Pain Level 5 O2 % BldC Oximetry 99 % BMI (Body Mass Index) 27.8 kg/m2 10/23/2017 2:41pm Height 67 inches 5'7" Weight 156.00 lb Heart Rate 90 /min BP Systolic Sitting 118 mmHg BP Diastolic Sitting 68 mmHg Respiratory Rate 14 /min Pain Level 8 BMI (Body Mass Index) 24.4 kg/m2 07/24/2017 4:03pm Height 67 inches 5'7" Weight 154.00 lb Heart Rate 84 /min BP Systolic Sitting 127 mmHg BP Diastolic Sitting 76 mmHg Respiratory Rate 14 /min Pain Level 5 BMI (Body Mass Index) 24.1 kg/m2 06/21/2017 2:13pm Height 67 inches 5'7" Weight 150.50 lb Heart Rate 86 /min BP Systolic Sitting 131 mmHg BP Diastolic Sitting 86 mmHg Respiratory Rate 14 /min Pain Level 5 BMI (Body Mass Index) 23.6 kg/m2 05/28/2015 8:36am Height 67 inches 5'7" Weight 121.75 lb Heart Rate 94 /min BP Systolic Sitting 106 mmHg BP Diastolic Sitting 62 mmHg Body Temperature 96.9 F Pain Level 2 O2 % BldC Oximetry 98 % BMI (Body Mass Index) 19.1 kg/m2 05/12/2015 3:06pm Height 67 inches 5'7" Weight 124.00 lb Heart Rate 90 /min BP Systolic Sitting 116 mmHg BP Diastolic Sitting 52 mmHg Respiratory Rate 14 /min O2 % BldC Oximetry 99 % BMI (Body Mass Index) 19.4 kg/m2 03/31/2015 2:57pm Height 66 inches 5'6" Weight 125.25 lb Heart Rate 106 /min BP Systolic 118 mmHg BP Diastolic 80 mmHg Respiratory Rate 14 /min O2 % BldC Oximetry 98 % BMI (Body Mass Index) 20.2 kg/m2 11/17/2014 9:32am Height 66 inches 5'6" Weight 119.25 lb Heart Rate 110 /min BP Systolic Sitting 124 mmHg LA, reg BP Diastolic Sitting 88 mmHg LA, reg BP Systolic Standing 122 mmHg LA, reg BP Diastolic Standing 84 mmHg LA, reg BMI (Body Mass Index) 19.2 kg/m2 Blood Pressure Percentile 0 % Height Percentile 75 % Weight Percentile 36th 10/16/2014 9:01am Weight 126.25 lb Heart Rate 80 /min BP Systolic Sitting 102 mmHg BP Diastolic Sitting 54 mmHg Respiratory Rate 18 /min Body Temperature 98.9 F O2 % BldC Oximetry 97 % Blood Pressure Percentile 0 % Weight Percentile 51st 09/17/2014 8:45am Heart Rate 72 /min BP Systolic Sitting 102 mmHg BP Diastolic Sitting 56 mmHg Respiratory Rate 18 /min O2 % BldC Oximetry 98 % Blood Pressure Percentile 0 % 09/03/2014 2:45pm Weight 125.00 lb Heart Rate 111 /min BP Systolic 118 mmHg p 78 lying BP Diastolic 79 mmHg p 78 lying BP Systolic Sitting 116 mmHg BP Diastolic Sitting 74 mmHg BP Systolic Standing 112 mmHg p114 standing BP Diastolic Standing 79 mmHg p114 standing BP Systolic Recheck 111 mmHg P100 sitting BP Diastolic Recheck 76 mmHg P100 sitting Body Temperature 97.7 F Blood Pressure Percentile 0 % Weight Percentile 49th 08/22/2014 4:00pm Height 66 inches 5'6" Weight 128.00 lb Heart Rate 84 /min BP Systolic Sitting 102 mmHg BP Diastolic Sitting 62 mmHg Pain Level 0 BMI (Body Mass Index) 20.7 kg/m2 Blood Pressure Percentile 0 % Height Percentile 75 % Weight Percentile 55th 08/06/2014 8:42am Height 66 inches 5'6" Weight 120.00 lb Heart Rate 89 /min BP Systolic Sitting 122 mmHg BP Diastolic Sitting 54 mmHg Respiratory Rate 18 /min Body Temperature 97.8 F O2 % BldC Oximetry 98 % BMI (Body Mass Index) 19.4 kg/m2 Neck Circumference in inches 12.75 Blood Pressure Percentile 0 % Height Percentile 75 % Weight Percentile 39th 07/16/2014 9:07am Height 66.50 inches 5'6.50" Weight 120.50 lb Heart Rate 107 /min BP Systolic Sitting 100 mmHg BP Diastolic Sitting 66 mmHg O2 % BldC Oximetry 99 % BMI (Body Mass Index) 19.2 kg/m2 Blood Pressure Percentile 0 % Height Percentile 81 % Weight Percentile 41st 07/04/2014 11:34am Height 66.50 inches 5'6.50" Weight 121.00 lb Heart Rate 88 /min BP Systolic Sitting 94 mmHg BP Diastolic Sitting 60 mmHg Pain Level 2 BMI (Body Mass Index) 19.2 kg/m2 Blood Pressure Percentile 0 % Height Percentile 81 % Weight Percentile 42nd 05/22/2014 8:45am Height 66.50 inches 5'6.50" Weight 120.75 lb Heart Rate 92 /min BP Systolic Sitting 86 mmHg BP Diastolic Sitting 50 mmHg Pain Level 3 BMI (Body Mass Index) 19.2 kg/m2 Blood Pressure Percentile 0 % Height Percentile 81 % Weight Percentile 42nd Results Test Date Facility Test Result H/L Range Note Laboratory test 06/26/2017 [facility] Centromere Auto >8.0 U Abnormal [address] [place] [address] [phone] Ribosome P Antibodies, Igg <0.2 U 2 Anti Double Stranded Dna Ab 15.5 IU/mL 3 Interpretation See Comment 4 Yvonne Igg AB Reflex 06/26/2017 [facility] SS-A/Ro Antibody <0.2 U [address] [place] [address] [phone] SS-B/La Antibody <0.2 U 6 Sm (Chao) IgG Antibody <0.2 U 7 U1-nRNP Antibody <0.2 U 8 Scl-70 (Scleroderma) Antibody <0.2 U 9 Heavenly-1 Antibody <0.2 U 10 Laboratory test 06/26/2017 [facility] Vitamin D, 1,25 60 pg/mL [address] [place] [address] [phone] Connective 06/26/2017 [facility] Anti-Nuclear 10.0 U High [address] [place] [address] [phone] Cyclic Citrullinated Peptide <15.6 U 13 Hla B27 06/26/2017 [facility] Hla B27 Negative [address] [place] [address] [phone] Hla B27 Interp See Comment 15 Laboratory test 06/26/2017 [facility] Erythrocyte Sed 12 mm/Hr N 0-[address] [place] [address] [phone] C Reactive Protein 1.44 mg/L N < 5.00 17 Anca AB Ser If 06/26/2017 [facility] C-Anca Negative Negative [address] [place] [address] [phone] P-Anca Negative Negative 18 Laboratory test 06/26/2017 [facility] Free T4 (Free 0.91 ng/dL N 0.61-1.12 [address] Thyroxine) [place] [address] [phone] T3 Free 4.70 pg/mL High 2.5-3.9 20 Vitamin B6 06/26/2017 [facility] Pyridoxal 5-Phosphate 6 g/L 5-[address] [place] [address] [phone] Pyridoxic Acid <2 g/L Abnormal 3-30 22 Laboratory test 06/26/2017 [facility] Creatine 73 U/L N 10- 223 [address] Kinase(CK) [place] [address] [phone] Vitamin B12 And 06/26/2017 [facility] Vitamin B12 162 Low 180- 914 24 Folate Serum [address] pg/[place] [address] [phone] Folic Acid (Folate) > 20.00 ng/mL >3.99 25 CBC Auto Diff 06/16/2016 [facility] White Blood 4.8 10^3/uL N 3.5-10.[address] [place] [address] [phone] Red Blood Count 4.29 10^6/uL N 4.0-5.4 Hemoglobin 13.5 g/dL N 12.0-16.0 Hematocrit 40 % N 35-47 Mean Corpuscular Volume 94 fL N 80-97 Mean Corpuscular Hemoglobin 32 pg High 27-31 Mean Corpuscular HGB Conc 34 g/dL N 31-36 Red Cell Distribution Width 12 % N 10.5-15 Platelet Count 200 10^3/uL N 150-450 Mean Platelet Volume 10 um3 N 7.4-10.4 Abs Neutrophils 2.7 10^3/uL N 1.5-7.7 Abs Lymphocytes 1.7 10^3/uL N 1.0-4.8 Abs Monocytes 0.4 10^3/uL N 0-0.8 Abs Eosinophils 0 10^3/uL N 0-0.6 Abs Basophils 0 10^3/uL N 0-0.2 Abs Nucleated RBC 0 10^3/uL N Granulocyte % 55.4 % N 38-83 Lymphocyte % 34.9 % N 25-47 Monocyte % 9.1 % High 1-9 Eosinophil % 0.1 % N 0-6 Basophil % 0.5 % N 0-2 Nucleated Red Blood Cells % 0 N Comp Metabolic Panel 06/16/2016 [facility] Sodium 136 mmol/L N 133-145 [address] [place] [address] [phone] Potassium 3.5 mmol/L N 3.5-5.0 Chloride 104 mmol/L N 101-111 Co2 Carbon Dioxide 25 mmol/L N 22-32 Anion Gap 7 mmol/L N 2-11 Glucose 86 mg/dL N 70-100 Blood Urea Nitrogen 12 mg/dL N 6-24 Creatinine 0.83 mg/dL N 0.51-0.95 BUN/Creatinine Ratio 14.5 N 8-20 Calcium 9.1 mg/dL N 8.6-10.3 Total Protein 8.4 g/dL N 6.4-8.9 Albumin 4.4 g/dL N 3.2-5.2 Globulin 4.0 g/dL N 2-4 Albumin/Globulin Ratio 1.1 N 1-3 Total Bilirubin 0.40 mg/dL N 0.2-1.0 Alkaline Phosphatase 38 U/L N 34-104 Alt 13 U/L N 7-52 Ast 19 U/L N 13-39 Egfr Non- 87.6 N >60 Egfr 112.7 N >60 26 Urine Culture And 06/16/2016 [facility] Urine Culture SEE RESULT [address] [place] [address] [phone] Urinalysis Profile 06/16/2016 [facility] Urine Color Yamilka N [address] [place] [address] [phone] Urine Appearance Turbid N Urine Specific [place] 1.023 N 1.010-1.030 Urine pH 7.0 N 5-9 Urine Urobilinogen Negative N Negative Urine Ketones Negative N Negative Urine Protein Negative N Negative Urine Leukocytes Trace Abnormal Negative Urine Blood Negative N Negative Urine Nitrite Negative N Negative Urine Bilirubin Negative N Negative Urine Glucose Negative N Negative Urine White Blood Cell Trace(0-5/hpf) N Absent Urine Red Blood Cell Absent N Absent Urine Bacteria Absent N Absent Urine Squamous Epithelial Cell Present Abnormal Absent Urine Calcium Oxalate Cryst Present Abnormal Absent Laboratory test 06/16/2016 [facility] Lipase 11 U/L N 11.0- 82.[address] [place] [address] [phone] Laboratory test 05/24/2015 [facility] C Reactive < 1.00 mg/L N < 5.[address] [place] [address] [phone] Inr/Protime 05/24/2015 [facility] Inr 1.10 N 0.89-1.[address] [place] [address] [phone] Laboratory test 05/24/2015 [facility] Partial 27.0 seconds N 26.0-36.[address] [place] [address] PTT [phone] HCG Qualitative Negative N Negative Comp Metabolic Panel 05/24/2015 [facility] Sodium 132 mmol/L Low 133-[address] [place] [address] [phone] Potassium 3.6 mmol/L N 3.5-5.0 Chloride 102 mmol/L N 101-111 Co2 Carbon Dioxide 24 mmol/L N 22-32 Anion Gap 6 mmol/L N 2-11 Glucose 122 mg/dL High 70-100 Blood Urea Nitrogen 10 mg/dL N 6-24 Creatinine 0.84 mg/dL N 0.51-0.95 BUN/Creatinine Ratio 11.9 N 8-20 Calcium 8.6 mg/dL N 8.6-10.3 Total Protein 7.5 g/dL N 6.4-8.9 Albumin 4.1 g/dL N 3.2-5.2 Globulin 3.4 g/dL N 2-4 Albumin/Globulin Ratio 1.2 N 1-3 Total Bilirubin 0.30 mg/dL N 0.2-1.0 Alkaline Phosphatase 39 U/L N 34-104 Alt 10 U/L N 7-52 Ast 13 U/L N 13-39 Egfr Non- 87.3 N >60 Egfr 112.3 N >60 30 CBC Auto Diff 05/24/2015 [facility] White Blood 8.6 10^3/uL N 4.8-10.[address] [place] [address] [phone] Red Blood Count 4.06 10^6/uL N 4.0-5.4 Hemoglobin 13.1 g/dL N 12.0-16.0 Hematocrit 39 % N 35-47 Mean Corpuscular Volume 95 fL N 80-97 Mean Corpuscular Hemoglobin 32 pg High 27-31 Mean Corpuscular HGB Conc 34 g/dL N 31-36 Red Cell Distribution Width 12 % N 10.5-15 Platelet Count 176 10^3/uL N 150-450 Mean Platelet Volume 10 um3 N 7.4-10.4 Abs Neutrophils 6.3 10^3/uL N 1.5-7.7 Abs Lymphocytes 1.7 10^3/uL N 1.0-4.8 Abs Monocytes 0.5 10^3/uL N 0-0.8 Abs Eosinophils 0.1 10^3/uL N 0-0.6 Abs Basophils 0 10^3/uL N 0-0.2 Abs Nucleated RBC 0 10^3/uL N Granulocyte % 73.2 % N 38-83 Lymphocyte % 19.7 % Low 25-47 Monocyte % 6.0 % N 1-9 Eosinophil % 0.7 % N 0-6 Basophil % 0.4 % N 0-2 Nucleated Red Blood Cells % 0 N CBC No Diff 03/23/2015 [facility] White Blood 5.7 10^3/uL N 4.8-10.[address] [place] [address] [phone] Red Blood Count 4.08 10^6/uL N 4.0-5.4 Hemoglobin 13.1 g/dL N 12.0-16.0 Hematocrit 39 % N 35-47 Mean Corpuscular Volume 96 fL N 80-97 Mean Corpuscular Hemoglobin 32 pg High 27-31 Mean Corpuscular HGB Conc 34 g/dL N 31-36 Red Cell Distribution Width 12 % N 10.5-15 Platelet Count 164 10^3/uL N 150-450 Mean Platelet Volume 10 um3 N 7.4-10.4 Comp Metabolic Panel 03/23/2015 [facility] Sodium 136 mmol/L N 133-[address] [place] [address] [phone] Potassium 4.4 mmol/L N 3.5-5.0 Chloride 102 mmol/L N 101-111 Co2 Carbon Dioxide 29 mmol/L N 22-32 Anion Gap 5 mmol/L N 2-11 Glucose 79 mg/dL N 70-100 Blood Urea Nitrogen 10 mg/dL N 6-24 Creatinine 0.80 mg/dL N 0.51-0.95 BUN/Creatinine Ratio 12.5 N 8-20 Calcium 9.0 mg/dL N 8.6-10.3 Total Protein 7.3 g/dL N 6.4-8.9 Albumin 4.1 g/dL N 3.2-5.2 Globulin 3.2 g/dL N 2-4 Albumin/Globulin Ratio 1.3 N 1-3 Total Bilirubin 0.30 mg/dL N 0.2-1.0 Alkaline Phosphatase 44 U/L N 34-104 Alt 13 U/L N 7-52 Ast 14 U/L N 13-39 Egfr Non- 92.4 N >60 Egfr 118.8 N >60 32 Laboratory test 03/23/2015 [facility] C Reactive < 1.00 N < 5.00 [address] Protein mg/L [place], [place] [id number] [phone] Cortisol 26.73 ?g/dL N 34 TSH (Thyroid Stim Horm) 4.61 ?IU/mL N 0.34-5.60 35 Ferritin 21.2 ng/mL N 11-307 36 Acth 55 pg/mL N 37 Laboratory test 01/12/2015 [facility] Surgical SEE RESULT [address] [place] [address] [phone] Laboratory test 01/12/2015 [facility] Clotest SEE RESULT [address] [place] [address] [phone] CBC Auto Diff 11/25/2014 [facility] White Blood 4.9 10^3/uL N 4.8-[address] Count .8 [place] [address] [phone] Red Blood Count 4.29 10^6/uL N 4.0-5.4 Hemoglobin 13.7 g/dL N 12.0-16.0 Hematocrit 41 % N 35-47 Mean Corpuscular Volume 95 fL N 80-97 Mean Corpuscular Hemoglobin 32 pg High 27-31 Mean Corpuscular HGB Conc 34 g/dL N 31-36 Red Cell Distribution Width 12 % N 10.5-15 Platelet Count 180 10^3/uL N 150-450 Mean Platelet Volume 11 um3 High 7.4-10.4 Abs Neutrophils 2.3 10^3/uL N 1.5-7.7 Abs Lymphocytes 2.2 10^3/uL N 1.0-4.8 Abs Monocytes 0.4 10^3/uL N 0-0.8 Abs Eosinophils 0.1 10^3/uL N 0-0.6 Abs Basophils 0 10^3/uL N 0-0.2 Abs Nucleated RBC 0 10^3/uL N Granulocyte % 46.9 % N 38-83 Lymphocyte % 44.1 % N 25-47 Monocyte % 7.3 % N 1-9 Eosinophil % 1.4 % N 0-6 Basophil % 0.3 % N 0-2 Nucleated Red Blood Cells % 0 N Comp Metabolic Panel 11/25/2014 [facility] Sodium 137 mmol/L N 133-[address] [place] [address] [phone] Potassium 4.0 mmol/L N 3.5-5.0 Chloride 101 mmol/L N 101-111 Co2 Carbon Dioxide 29 mmol/L N 22-32 Anion Gap 7 mmol/L N 2-11 Glucose 98 mg/dL N 70-100 Blood Urea Nitrogen 11 mg/dL N 6-24 Creatinine 0.89 mg/dL N 0.51-0.95 BUN/Creatinine Ratio 12.4 N 8-20 Calcium 9.8 mg/dL N 8.6-10.3 Total Protein 7.7 g/dL N 6.4-8.9 Albumin 4.6 g/dL N 3.2-5.2 Globulin 3.1 g/dL N 2-4 Albumin/Globulin Ratio 1.5 N 1-3 Total Bilirubin 0.50 mg/dL N 0.2-1.0 Alkaline Phosphatase 38 U/L N 34-104 Alt 9 U/L N 7-52 Ast 11 U/L Low 13-39 Egfr Non- 82.6 N >60 Egfr 106.2 N >60 40 Laboratory test 11/25/2014 [facility] C Reactive < 1.00 N < 5.00 [address] Protein mg/[place] [address] [phone] Ferritin 23.7 ng/mL N 11-307 Vitamin B12 252 pg/mL N 180-914 42 Laboratory test 11/25/2014 [facility] Cortisol 28.81 N 43 finding [address] [facility] ?g/[place] [address] [phone] Laboratory test 11/25/2014 [facility] Tissue <1.2 U/mL N 44 finding [address] [facility] [place] [address] Ab [phone] Anti Gliadin Igg 11/25/2014 [facility] Gliadin IgG <10.0 U N 45 And Iga AB [address] [place] [address] [phone] Gliadin IgA <10.0 U N 46 Laboratory test 10/31/2014 [facility] Magnesium 2.1 mg/dL N 1.9-2.7 finding [address] [place] [address] [phone] Lipase 10 U/L Low 11.0-82.0 C Reactive Protein < 1.00 mg/L N < 5.00 47 Serum Negative N Negative 48 Comp Metabolic Panel 10/31/2014 [facility] Sodium 137 mmol/L N 133-145 [address] [place] [address] [phone] Potassium 4.1 mmol/L N 3.5-5.0 Chloride 105 mmol/L N 101-111 Co2 Carbon Dioxide 27 mmol/L N 22-32 Anion Gap 5 mmol/L N 2-11 Glucose 84 mg/dL N 70-100 Blood Urea Nitrogen 12 mg/dL N 6-24 Creatinine 0.83 mg/dL N 0.51-0.95 BUN/Creatinine Ratio 14.5 N 8-20 Calcium 9.2 mg/dL N 8.6-10.3 Total Protein 8.0 g/dL N 6.4-8.9 Albumin 4.5 g/dL N 3.2-5.2 Globulin 3.5 g/dL N 2-4 Albumin/Globulin Ratio 1.3 N 1-3 Total Bilirubin 0.30 mg/dL N 0.2-1.0 Alkaline Phosphatase 39 U/L N 34-104 Alt 8 U/L N 7-52 Ast 14 U/L N 13-39 Egfr Non- 89.5 N >60 Egfr 115.1 N >60 49 CBC Auto Diff 10/31/2014 [facility] White Blood 6.1 10^3/uL N 4.8-10.[address] [place] [address] [phone] Red Blood Count 4.40 10^6/uL N 4.0-5.4 Hemoglobin 14.0 g/dL N 12.0-16.0 Hematocrit 42 % N 35-47 Mean Corpuscular Volume 94 fL N 80-97 Mean Corpuscular Hemoglobin 32 pg High 27-31 Mean Corpuscular HGB Conc 34 g/dL N 31-36 Red Cell Distribution Width 12 % N 10.5-15 Platelet Count 185 10^3/uL N 150-450 Mean Platelet Volume 11 um3 High 7.4-10.4 Abs Neutrophils 4.0 10^3/uL N 1.5-7.7 Abs Lymphocytes 1.6 10^3/uL N 1.0-4.8 Abs Monocytes 0.5 10^3/uL N 0-0.8 Abs Eosinophils 0 10^3/uL N 0-0.6 Abs Basophils 0 10^3/uL N 0-0.2 Abs Nucleated RBC 0.01 10^3/uL N Granulocyte % 65.7 % N 38-83 Lymphocyte % 25.7 % N 25-47 Monocyte % 7.9 % N 1-9 Eosinophil % 0.3 % N 0-6 Basophil % 0.4 % N 0-2 Nucleated Red Blood Cells % 0.1 N Urine Culture And 10/31/2014 [facility] Urine Culture (SEE NOTE ) 50 [address] [place] [address] [phone] Urinalysis Profile 10/31/2014 [facility] Urine Color Yellow N [address] [place] [address] [phone] Urine Appearance Cloudy N Urine Specific [place] 1.019 N 1.010-1.030 Urine pH 7.0 N 5-9 Urine Urobilinogen Negative N Negative Urine Ketones Negative N Negative Urine Protein Negative N Negative Urine Leukocytes 3+ Abnormal Negative Urine Blood Negative N Negative * * Abnormal Negative 51 Urine Nitrite Negative N Negative Urine Bilirubin Negative N Negative Urine Glucose Negative N Negative Urine White Blood Cell 3+(>20/hpf) Abnormal Absent Urine Red Blood Cell 1+(3-5/hpf) Abnormal Absent Urine Bacteria Absent N Absent Urine Squamous Epithelial Cell Present Abnormal Absent Ua Routine 10/16/2014 [facility] House Ua Specific [place] 1.015 Ua PH 6.5 Ua Color yellow Ua Appera clear Ua WBC trace Ua Protein 30 Ua Glucose neg Ua Ketones neg Ua Bilirubin sm Ua Urobilinogen norm Ua Nitrite neg Ua Occult Blood trace Comp Metabolic Panel 07/16/2014 Sodium 137 mmol/L N 133-145 Potassium 4.0 mmol/L N 3.5-5.0 Chloride 102 mmol/L N 101-111 Co2 Carbon Dioxide 29 mmol/L N 22-32 Anion Gap 6 mmol/L N 2-11 Glucose 81 mg/dL N 70-100 Blood Urea Nitrogen 10 mg/dL N 6-24 Creatinine 0.82 mg/dL N 0.51-0.95 BUN/Creatinine Ratio 12.2 N 8-20 Calcium 9.5 mg/dL N 8.6-10.3 Total Protein 7.7 g/dL N 6.4-8.9 Albumin 4.3 g/dL N 3.2-5.2 Globulin 3.4 g/dL N 2-4 Albumin/Globulin Ratio 1.3 N 1-3 Total Bilirubin 0.30 mg/dL N 0.2-1.0 Alkaline Phosphatase 38 U/L N 34-104 Alt 16 U/L N 7-52 Ast 18 U/L N 13-39 Egfr Non- 90.8 N >60 Egfr 116.8 N >60 52 Laboratory test finding 07/16/2014 TSH (Thyroid Stimulating 2.07 IU/mL N 0.34-5.60 Horm) 1 Interpretation: Positive (>=1.0) REFERENCE VALUE <1.0 (Negative) Test Performed by: [facility] - [address] [address] 2 REFERENCE VALUE <1.0 (Negative) Test Performed by: [place] [id number] 3 Negative for dsDNA antibody by enzyme immunoassay. No further testing recommended. REFERENCE VALUE <30.0 (Negative) Test Performed by: [facility] - [facility] [address] [place] [address] 4 RESULT: Consistent with CREST syndrome. Test Performed by: [facility] - [facility] [address] [place] [address] 5 REFERENCE VALUE <1.0 (Negative) 6 REFERENCE VALUE <1.0 (Negative) 7 REFERENCE VALUE <1.0 (Negative) 8 REFERENCE VALUE <1.0 (Negative) 9 REFERENCE VALUE <1.0 (Negative) 10 REFERENCE VALUE <1.0 (Negative) Test Performed by: [facility] - [facility] [address] [place] [address] 11 ADDITIONAL INFORMATION This test was developed and its performance characteristics determined by [facility] in a manner consistent with CLIA requirements. This test has not been cleared or approved by the U.S. Food and Drug Administration. Test Performed by: [facility] - [facility] [address] [place] [address] 12 Interpretation: Strong Positive (>=6.0) REFERENCE VALUE <=1.0 (Negative) 13 REFERENCE VALUE <20.0 (Negative) Test Performed by: [facility] - [address] [address] 14 REFERENCE VALUE Not Applicable 15 RESULT: HLA-B27 antigen was not detected. ADDITIONAL INFORMATION Method: Flow Cytometry Performing Laboratory CLIA# [id number] Test Performed by: [facility] - [address] [address] 16 Please check labs this week 17 Acute inflammation: >10.00 18 Negative for cANCA and pANCA patterns by immunofluorescence. ADDITIONAL INFORMATION This test was developed and its performance characteristics determined by [facility] in a manner consistent with CLIA requirements. This test has not been cleared or approved by the U.S. Food and Drug Administration. Test Performed by: [facility] - [address] [address] 19 Please check labs this week 20 Please check labs this week 21 ADDITIONAL INFORMATION This test was developed and its performance characteristics determined by [facility] in a manner consistent with CLIA requirements. This test has not been cleared or approved by the U.S. Food and Drug Administration. 22 ADDITIONAL INFORMATION This test was developed and its performance characteristics determined by [facility] in a manner consistent with CLIA requirements. This test has not been cleared or approved by the U.S. Food and Drug Administration. Test Performed by: [facility] - [facility] [address] [place] [address] 23 Please check labs this week 24 Normal Range 180 to 914 Indeterminate Range 145 to 180 Deficient Range <145 25 Please check labs this week 26 Because ethnic data is not always readily available, this report includes an eGFR for both -Americans and non- Americans. The National Kidney Disease Education Program (NKDEP) does not endorse the use of the MDRD equation for patients that are not between the ages of 18 and 70, are , have extremes of body size, muscle mass, or nutritional status, or are non- or non-. According to the National Kidney Foundation, irrespective of diagnosis, the stage of the disease is based on the level of kidney function: Stage Description GFR(mL/min/1.73 m(2)) 1 Kidney damage with normal or decreased GFR 90 2 Kidney damage with mild decrease in GFR 60-89 3 Moderate decrease in GFR 30-59 4 Severe decrease in GFR 15-29 5 Kidney failure <15 (or dialysis) 27 SEE RESULT BELOW Name: MELIA ZARATE : [address]: Karlos Mehta DO Acct: [id number] Unit: [id number] AGE: 21 Location: ED Re06/16/16 SEX: F Status: DEP ER SPEC: [id number] EJ: 06/16/16 [facility] DR: Pippa FITZGERALD REQ: [id number] RECD: 06/16/16 STATUS: TIFFANIE ARNOLD DR: aKrlos Galeano MD _ SOURCE: URINE SPDESC: ORDERED: Urine Culture Procedure Result Reported Site Urine Culture Final 06/17/16- 1254 ML No growth of clinically significant organisms * ML - MA[facility] LAB ([facility]) . END OF REPORT * ML=Testing performed at Main Lab DEPARTMENT OF PATHOLOGY, [address] [place] [address] Trevin Rey M.D. Director [facility] # [id number] 28 Acute inflammation: >10.00 29 Effective immediately, due to a laboratory mean normal Protime change, the reference range for the INR has changed. 30 Because ethnic data is not always readily available, this report includes an eGFR for both -Americans and non- Americans. The National Kidney Disease Education Program (NKDEP) does not endorse the use of the MDRD equation for patients that are not between the ages of 18 and 70, are , have extremes of body size, muscle mass, or nutritional status, or are non- or non-. According to the National Kidney Foundation, irrespective of diagnosis, the stage of the disease is based on the level of kidney function: Stage Description GFR(mL/min/1.73 m(2)) 1 Kidney damage with normal or decreased GFR 90 2 Kidney damage with mild decrease in GFR 60-89 3 Moderate decrease in GFR 30-59 4 Severe decrease in GFR 15-29 5 Kidney failure <15 (or dialysis) 31 PT IS FASTING 32 Because ethnic data is not always readily available, this report includes an eGFR for both -Americans and non- Americans. The National Kidney Disease Education Program (NKDEP) does not endorse the use of the MDRD equation for patients that are not between the ages of 18 and 70, are , have extremes of body size, muscle mass, or nutritional status, or are non- or non-. According to the National Kidney Foundation, irrespective of diagnosis, the stage of the disease is based on the level of kidney function: Stage Description GFR(mL/min/1.73 m(2)) 1 Kidney damage with normal or decreased GFR 90 2 Kidney damage with mild decrease in GFR 60-89 3 Moderate decrease in GFR 30-59 4 Severe decrease in GFR 15-29 5 Kidney failure <15 (or dialysis) 33 Acute inflammation: >10.00 34 AM 8.7-22.4 PM <10 35 PT IS FASTING 36 PT IS FASTING 37 REFERENCE VALUE 10-60 (a.m. collection) Test Performed by: [address] [address] Dictating Machine Transcriber: Hai Santos II, M.D., Ph.D. 38 SEE RESULT BELOW Name: MELIA ZARATE Jaqueline Ramos : [address]: Gio Hernández MD Acct: [id number] Unit: [id number] AGE: 20 Location: ENDOCEC Re01/12/15 SEX: F Status: REG REF SPEC: [id number] EJ: 01/12/15- SUBM DR: Gio Hernández MD REQ: [id number] RECD: 01/12/15089 STATUS: NIKOLE ARNOLD DR: Leigh Whitehead MD _ ORDERED: H PYLORI [facility], LEVEL IV/2 FINAL DIAGNOSIS 1. Small bowel, third portion of duodenum, biopsy: -- Small bowel mucosa with normal villous architecture and no significant pathologic abnormality. 2. Stomach, antrum, biopsy: -- Mild to moderate chronic active gastritis. -- No Helicobacter pylori-like organisms are identified. See comment. Comment: An immunohistochemical stain for Helicobacter pylori-like organisms was performed with appropriate controls on part 2 and is negative. CLINICAL HISTORY Epigastric pain POST-OPERATIVE DIAGNOSIS Larynx - narrow; esophagus - normal EG 39; stomach - normal, CLOtest x2, antrum x2; duodenum - normal. Normal EGD. Epigastric pain GROSS DESCRIPTION 1. The specimen is received in formalin labeled, Biopsy Third Portion Duodenum, and consists of three ferris-pink irregular soft tissue fragments ranging from 0.3 x 0.2 x 0.1 cm to 0.5 cm by up to 0.3 x 0.2 cm, which are submitted entirely in one cassette. 2. The specimen is received in formalin labeled, Gastric Antrum, and consists of two ferris irregular soft tissue fragments measuring 0.3 x 0.2 x 0.2 cm and 0.4 x 0.3 x 0.2 cm, which are submitted entirely in one cassette. CONTINUED ON NEXT PAGE * ML=Testing performed at Main Lab DEPARTMENT OF PATHOLOGY, [address] [place] [address] Trevin Rey M.D. Director [facility] # [id number] RUN DATE: 01/14/15 [facility] LAB LIVE PAGE 2 Patient: MELIA ZARATE [id number] (Continued) GROSS DESCRIPTION (Continued) Signed (signature on file) Trevin Rey MD 1046 END OF REPORT * ML=Testing performed at Main Lab DEPARTMENT OF PATHOLOGY, [address] [place] [address] Trevin Rey M.D. Director [facility] # [id number] 39 SEE RESULT BELOW Name: MELIA ZARATE : [address]: Gio Hernández MD Acct: [id number] Unit: [id number] AGE: 20 Location: ENDOCEC Re01/12/15 SEX: F Status: REG REF SPEC: [id number] EJ: 01/12/15-8[address] [facility] DR: Gio Hernández MD REQ: [id number] RECD: 01/12/15-1221 STATUS: COMP OTHR DR: Leigh Whitehead MD _ SOURCE: GAS ANTRUM SPDESC: ORDERED: Clotest Procedure Result Verified Site Clotest Final 01/13/15725 ML Clotest Negative * ML - MAIN LAB ([facility]) . END OF REPORT * ML=Testing performed at Main Lab DEPARTMENT OF PATHOLOGY, [address] [place] [address] Trevin Rey M.D. Director [facility] # [id number] 40 Because ethnic data is not always readily available, this report includes an eGFR for both -Americans and non- Americans. The National Kidney Disease Education Program (NKDEP) does not endorse the use of the MDRD equation for patients that are not between the ages of 18 and 70, are , have extremes of body size, muscle mass, or nutritional status, or are non- or non-. According to the National Kidney Foundation, irrespective of diagnosis, the stage of the disease is based on the level of kidney function: Stage Description GFR(mL/min/1.73 m(2)) 1 Kidney damage with normal or decreased GFR 90 2 Kidney damage with mild decrease in GFR 60-89 3 Moderate decrease in GFR 30-59 4 Severe decrease in GFR 15-29 5 Kidney failure <15 (or dialysis) 41 Acute inflammation: >10.00 42 Normal Range 180 to 914 Indeterminate Range 145 to 180 Deficient Range <145 43 AM 8.7-22.4 PM <10 44 REFERENCE VALUE <4.0 (Negative) Test Performed by: [place] [address] Dictating Machine Transcriber: Hai Santos II, M.D., Ph.D. 45 REFERENCE VALUE <20.0 (Negative) Test Performed by: [place] [address] Dictating Machine Transcriber: Hai Santos II, M.D., Ph.D. 46 REFERENCE VALUE <20.0 (Negative) 47 Acute inflammation: >10.00 48 This test detects intact HCG only and is indicated for the early detection of . 49 Because ethnic data is not always readily available, this report includes an eGFR for both -Americans and non- Americans. The National Kidney Disease Education Program (NKDEP) does not endorse the use of the MDRD equation for patients that are not between the ages of 18 and 70, are , have extremes of body size, muscle mass, or nutritional status, or are non- or non-. According to the National Kidney Foundation, irrespective of diagnosis, the stage of the disease is based on the level of kidney function: Stage Description GFR(mL/min/1.73 m(2)) 1 Kidney damage with normal or decreased GFR 90 2 Kidney damage with mild decrease in GFR 60-89 3 Moderate decrease in GFR 30-59 4 Severe decrease in GFR 15-29 5 Kidney failure <15 (or dialysis) 50 RUN DATE: 11/02/14 [facility] LAB LIVE PAGE 1 RUN TIME: [address] [place] [address] Specimen Inquiry Name: MELIA ZARATE : [address]: Daysi Teresa MD Acct: [id number] Unit: [id number] AGE: 19 Location: ED Re10/31/14 SEX: F Status: DEP ER SPEC: [id number] EJ: 10/31/14-1506 [facility] DR: Daysi Teresa MD REQ: [id number] RECD: 10/31/14-160 STATUS: TIFFANIE ARNOLD DR: Leigh Whitehead MD _ SOURCE: URINE SPDESC: ORDERED: Urine Culture Procedure Result Verified Site Urine Culture Final 11/02/14- 1205 ML Organism 1 NORMAL ZOEY [place] Count 75-100,000 (Many) CFU/ML * ML - MAIN LAB ([facility]) . END OF REPORT * ML=Testing performed at Main Lab DEPARTMENT OF PATHOLOGY, [address] [place] [address] Trevin Rey M.D. Director [facility] # [id number] 51 *Ascorbic acid is present which may interfere with detection of blood. 52 Because ethnic data is not always readily available, this report includes an eGFR for both -Americans and non- Americans. The National Kidney Disease Education Program (NKDEP) does not endorse the use of the MDRD equation for patients that are not between the ages of 18 and 70, are , have extremes of body size, muscle mass, or nutritional status, or are non- or non-. According to the National Kidney Foundation, irrespective of diagnosis, the stage of the disease is based on the level of kidney function: Stage Description GFR(mL/min/1.73 m(2)) 1 Kidney damage with normal or decreased GFR 90 2 Kidney damage with mild decrease in GFR 60-89 3 Moderate decrease in GFR 30-59 4 Severe decrease in GFR 15-29 5 Kidney failure <15 (or dialysis) Procedures Date Code Description Status 12/23/2014 73532 ECHO Stress Test Incl Perf Contiuous ekg Monitoring W/Phys Completed Superv 12/04/2014 92707 ECHO Transthoracic, Real-Time 2D With Doppler And Color Completed Flow 11/17/2014 24138 EKG Tracing & Interpretation Completed 09/08/2014 16087 Holter Monitor Review (24 hr) review & interp only Completed 08/17/2014 28218 Polysomnography Sleep Staging 4+ Parameters Completed Encounters Type Date Location Provider Dx Diagnosis Office Visit 08/16/2018 Rheumatology Messi 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 syndrome R76.0 Raised antibody titer E53.8 Deficiency of other specified B group vitamins E04.1 Nontoxic single thyroid nodule Office Visit 06/21/2017 Rheumatology Isaak M35.7 Hypermobility 2:00p Services Of Larry Cuenca M.D. syndrome R76.0 Raised antibody titer R53.83 Other fatigue R20.8 Other disturbances of skin sensation M22.2x9 Patellofemoral disorders, unspecified knee Office Visit 05/28/2015 [facility] Leigh Whitehead, N94.6 Dysmenorrhea, 8:50a Medicine Albert unspecified Office Visit 05/12/2015 [facility] G47.00 Insomnia, 3:30p [facility] PILI Kwan, RN, unspecified [facility] K21.9 Gastro-esophageal reflux disease without esophagitis Office Visit 03/31/2015 [facility] G47.00 Insomnia, 3:15p [facility] PILI Kwan, RN, unspecified [facility] Office Visit 11/17/2014 [facility] Frandy Coats 300.02 Anxiety Disorder 9:40a Albert Nugent Generalized 530.81 Esophageal Reflux 780.2 Syncope & Collapse 786.09 Dyspnea & Respiratory Abnormalities Other Office Visit 10/16/2014 8:50a [facility] Medicine Leigh Whitehead, 788.1 Dysuria M.D. 787.1 Heartburn 300.02 Anxiety Disorder Generalized 780.2 Syncope & Collapse Office Visit 09/17/2014 8:45a [facility]mon[facility] [place] 780.52 Insomnia Sleep Services Of MD Michaela Unspecified [facility] 729.1 Myalgia & Myositis Unspec Office Visit 09/03/2014 2:50p [facility] Leigh Whiteheda, 992.1 Heat Syncope Medicine M.D. 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 Myositis Unspec 728.5 Hypermobility Syndrome Office Visit 08/06/2014 8:45a Pulmonology [facility] [place] 780.59 Sleep Disturbances Sleep Services Of MD Michaela Other [facility] 780.52 Insomnia Unspecified 729.1 Myalgia & Myositis Unspec Office Visit 07/16/2014 9:10a [facility] Leigh 300.02 Anxiety Disorder Medicine Albert Whitehead Generalized 780.52 Insomnia Unspecified Office Visit 07/04/2014 10:40a Rheumatology Tevin Navas 729.1 Myalgia & [facility] Albert Myositis Unspec 728.5 Hypermobility Syndrome Office Visit 05/22/2014 9:00a Rheumatology Tevin Navas 729.1 Myalgia & [facility] EpifanioDArnold Myositis Unspec 728.5 Hypermobility Syndrome Plan of Treatment Future Appointment(s):02/12/2019 1:00 pm - Isaak Cuenca M.D. at [facility]11/29/2018 - DADA Castaneda94.6 Abnormal results of thyroid function studiesInstructions:1. Blood tests today. 2. Your goal TSH is 0.5-2.5. 3. We will consider levothyroxine trial for 1 month if TSH>3.5. 4. Follow-up with PCP and OBGYN.F39 Unspecified mood [affective] zbbibdtaT35.9 Anxiety disorder, [id number] Chronic pain syndrome
[2018-12-26 13:04] VITALS: BP 128/77
--- NOTE | 2018-12-26 13:54 | UC ---
UC General HPI - HPI Summary HPI Summary: 23-year-old female comes in with a chief complaint of feeling hot. Patient is on Celexa she's been on it for several years sometime after starting Celexa she started feeling warm. Chronically she's been feeling warm for years. 2 weeks ago she started on levothyroxine for hypothyroidism and since starting that she feels even hotter. Being the air conditioning helps. Being outside and 75 temperature makes it virtually unbearable. No complaint of chest pain or palpitations. Patient states she thinks the levothyroxine is helping with her other symptoms. Patient tells me she is seeing a endocrinologists but she doesn 't know his name. She told me she has a follow-up with him on January 17, 2019. - History of Current Complaint Chief Complaint: UCGeneralIllness Stated Complaint: HEAT RELATED ILLNESS Time Seen by Provider: 12/26/18 13:16 Hx Last Menstrual Period: implant Pain Intensity: 0 - Allergy/Home Medications Allergies/Adverse Reactions: Allergies Allergy/AdvReac Type Severity Reaction Status Date / Time omeprazole AdvReac Mild GI Upset Verified 09/22/18 16:15 lactose AdvReac GI Upset Verified 09/22/18 16:15 fluoride AdvReac Mild Joint Pain Uncoded 09/22/18 16:15 Home Medications: Home Medications Levothyroxine TAB* [Synthroid 25 MCG TAB*] 25 mcg PO 12/26/18 [History] PMH/Surg Hx/FS Hx/Imm Hx Previously Healthy: Yes Endocrine History: Hypothyroidism Psychological History: Anxiety, Depression Other History Of: Negative For: Anticoagulant Therapy - Surgical History Surgical History: Yes Surgery Procedure, Year, and Place: TONSILLECTOMY -10/2007. APPENDECTOMY - 04/15. 07/2008 [facility]- closed reduction FX distal ulna/distal radius - Family History Known Family History: Positive: Hypertension, Diabetes - maternal, Other - IBS, depression in mother - Social History Alcohol Use: None Substance Use Type: None Smoking Status (MU): Never Smoked Tobacco Have You Smoked in the Last Year: No - Immunization History Vaccination Up to Date: Yes Review of Systems All Other Systems Reviewed And Are Negative: Yes Constitutional: Positive: Other - see hpi Skin: Positive: Negative Eyes: Positive: Negative ENT: Positive: Negative Respiratory: Positive: Negative Cardiovascular: Positive: Negative Gastrointestinal: Positive: Negative Motor: Positive: Negative Neurovascular: Positive: Negative Musculoskeletal: Positive: Negative Neurological: Positive: Negative Psychological: Positive: Negative Is Patient Immunocompromised?: No Physical Exam Triage Information Reviewed: Yes Appearance: Well-Appearing, No Pain Distress, Well-Nourished Vital Signs: Initial Vital Signs Temp 98.2 F 12/26/18 13:00 Pulse 98 12/26/18 13:00 Resp 18 12/26/18 13:00 BP 128/77 12/26/18 13:00 Pulse Ox 98 12/26/18 13:00 Vital Signs Reviewed: Yes Eye Exam: Normal Eyes: Positive: Conjunctiva Clear Neck: Positive: Supple Respiratory: Positive: Lungs clear, Normal breath sounds, No respiratory distress Cardiovascular: Positive: RRR Musculoskeletal Exam: Normal Musculoskeletal: Positive: Strength Intact, ROM Intact Neurological Exam: Normal Neurological: Positive: Alert, Muscle Tone Normal Psychological Exam: Normal Psychological: Positive: Age Appropriate Behavior Skin Exam: Normal Course/Dx - Course Course Of Treatment: PATIENT WISHES TO CONTINUE WITH THE THYROID MEDICATION. SHE WILL F/U WITH HER OFFICE WORKFOR[employer] PLANNER. I RECOMMENDED SHE CALL TO DISCUSS HER SX WITH HER OFFICE WORKFOR[employer] PLANNER TODAY. - Diagnoses Provider Diagnosis: Sensation of feeling hot Discharge - Sign-Out/Discharge Documenting (check all that apply): Patient Departure All imaging exams completed and their final reports reviewed: No Studies - Discharge Plan Condition: Stable Disposition: HOME Patient Education Materials: Hypothyroidism (ED) Forms: *Work Release Referrals: Vitor Hammond MD [Primary Care Provider] - Additional Instructions: FOLLOW UP WITH YOUR OFFICE WORKFORCE PLANNER. CALL HIM TODAY TO DISCUSS YOUR SYMPTOMS. GET RECHECKED SOONER IF YOUR CONDITION WORSENS OR ANY QUESTIONS OR CONCERNS. - Billing Disposition and Condition Condition: STABLE Disposition: Home
== END 2018-12-26 14:03 | disposition home or self-care (01) ==
LOC: UCEAST 12:32
DX: R20.8 Other disturbances of skin sensation (principal); E07.9 Disorder of thyroid, unspecified; F41.9 Anxiety disorder, unspecified; F32.9 Major depressive disorder, single episode, unspecified
CPT/HCPCS: 99211; G0463

== ENCOUNTER 2022-02-22 08:56 | Inpatient (IN) ==
[2022-02-22 10:57] LABS: ABS Lymphocytes 1.2 10^3/ul (1.0-4.8); ABS Monocytes 0.5 10^3/ul (0-0.8); Eosinophil % 0.5 %; Hematocrit 42 % (35-47); Hemoglobin 13.9 g/dL (12.0-16.0); Lymphocyte % 15.8 %; Mean Corpuscular HGB Conc 33 g/dL (31-36); Mean Corpuscular Hemoglobin 30 pg (27-31); Mean Corpuscular Volume 91 fL (80-97); Mean Platelet Volume 9.1 fL (7.4-10.4); Nucleated Red Blood Cells % 0.1; Platelet Count 292 10^3/uL (150-450); Red Blood Count 4.57 10^6 /uL (3.70-4.87); Red Cell Distribution Width 13 % (10-15); White Blood Count 7.8 10^3/uL (3.5-10.8)
[2022-02-22 11:00] LABS: Urine Appearance Clear; Urine Bilirubin Negative (Negative); Urine Blood Negative (Negative); Urine Color Straw; Urine Glucose Negative (Negative); Urine Ketones Negative (Negative); Urine Protein Negative (Negative)
[2022-02-22 11:01] LABS: Urine Nitrite Negative (Negative); Urine Specific Gravity 1.007 (1.002-1.030); Urine Urobilinogen 0.2 (Negative) (Negative)
[2022-02-22 11:25] LABS: Urine Benzodiazepine Screen None Detected (None Detect); Urine Cannabinoids Screen None Detected (None Detect); Urine Opiates Screen None Detected (None Detect)
[2022-02-22 11:52] LABS: ALT 15 U/L (7-52); AST 16 U/L (13-39); Acetaminophen < 15 mcg/mL; Albumin 4.7 g/dL (3.2-5.2); Albumin/Globulin Ratio 1.3 (1-3); Alcohol, S < 13 mg/dL (<13); Alkaline Phosphatase 91 U/L (35-149); Anion Gap 11 mmol/L (2-11); Blood Urea Nitrogen 10 mg/dL (6-24); CO2 Carbon Dioxide 25 mmol/L (22-32); Calcium 9.6 mg/dL (8.6-10.3); Chloride 101 mmol/L (101-111); Globulin 3.5 g/dL (2-4); Glucose 89 mg/dL (70-100); Potassium 4.4 mmol/L (3.5-5.0); Salicylate < 2.50 mg/dL (<30); Sodium 137 mmol/L (135-145); Total Protein 8.2 g/dL (6.4-8.9); eGFR CKD-EPI 91.6 (>60)
[2022-02-22 12:10] LABS: HCG Pregnancy < 0.60 mIU/mL
[2022-02-23 09:08] LABS: HDL Cholesterol 44.8 mg/dL
[2022-02-23] MEDS: Vitamin THERAPEUTIC TAB PO SCH (13:05)
[2022-02-24] MEDS: Vitamin THERAPEUTIC TAB PO SCH (08:23)
[2022-02-24] MEDS: Al Hydrox/Mg Hydrox/Simet LIQ 30 ML UDC PO PRN (08:23)
[2022-02-25] MEDS: Vitamin THERAPEUTIC TAB PO SCH (08:56)
[2022-02-26] MEDS: Vitamin THERAPEUTIC TAB PO SCH (10:50)
[2022-02-26] MEDS: Al Hydrox/Mg Hydrox/Simet LIQ 30 ML UDC PO PRN (23:39)
[2022-02-27] MEDS: Vitamin THERAPEUTIC TAB PO SCH (09:39)
[2022-02-28 08:32] VITALS: BP 135/74
[2022-02-28] MEDS: Vitamin THERAPEUTIC TAB PO SCH (09:15)
== END 2022-02-28 13:10 | disposition home or self-care (01) | DRG 751 ==
LOC: ED 08:56 → EDHOLD 10:59 → BSU 12:53
PROVIDERS: ADMIT Psychiatry & Neurology Psychiatry; ATTEND Psychiatry & Neurology Psychiatry